=== PATIENT | male | born 1935 | race Caucasian/White ===

== ENCOUNTER 2022-07-05 19:28 | Inpatient (IN) | payer MEDICARE, BC ==
[~2022-07-05] VITALS: Ht 182.9 cm; Wt 75.3 kg
[2022-07-05] MEDS ORDERED: PRAV20TA4 PO (20:37)
[2022-07-05] MEDS ORDERED: MELA5TAB PO (20:37)
[2022-07-05] MEDS ORDERED: SITA100T PO (20:37)
[2022-07-05] MEDS ORDERED: CLON0.5T4 PO (20:37)
[2022-07-05] MEDS ORDERED: DONE5TAB34 PO (20:37)
[2022-07-05] MEDS ORDERED: ESCI-9 PO (20:37)
[2022-07-05] MEDS ORDERED: MEMA10TA PO (20:37)
--- NOTE | 2022-07-05 20:57 | NUR ---
Patient has been admitted to room 139A MHU.
--- NOTE | 2022-07-05 21:51 | NUR ---
Patient is medically clear
--- NOTE | 2022-07-05 21:53 | NUR ---
Report given to September RN
--- NOTE | 2022-07-05 23:17 | NUR ---
Patient taken to MHU room 139A via gurney. Patient in stable condition, no signs of distress. May RN aware of patients arrival.
[2022-07-05 23:32] VITALS: BP 127/70
[2022-07-05] MEDS ORDERED: MAGNESIUM HYDROXIDE 30 ML LIQUID UDC PO PRN (23:45)
[2022-07-05] MEDS ORDERED: MAG HYDROX/AL HYDROX/SIMETH 30 ML LIQUID UDC PO PRN (23:45)
[2022-07-05] MEDS ORDERED: BLOOD SUGAR DIAGNOSTIC 1 EACH STRIP VI ONE (23:45)
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
[2022-07-06 07:30] VITALS: BP 128/75
--- NOTE | 2022-07-06 08:46 | NUR ---
Initial Discharge Plan: Patient currently resides at [facility] in [address] [address] . Patient's son, Storm Munguia states that he would be open to the patient going back to [address] [id number] . SW will continue to work with patient, family, and MD to ensure a safe and proper discharge plan.
[2022-07-06 16:00] VITALS: BP 128/71
[2022-07-06] MEDS: ESCITALOPRAM OXALATE 10 MG TABLET PO SCH (17:08)
[2022-07-06] MEDS: METFORMIN HCL 500 MG TABLET PO SCH (17:09)
--- NOTE | 2022-07-06 17:38 | NUR ---
patient has been asleep most of shift , unable to get up with PT ,compliant with medication ,no s/s of pain or discomfort. incontinent of B and B keep skin dry and clean .will continue close monitoring.
[2022-07-06 20:05] VITALS: BP 126/69
[2022-07-06] MEDS: DONEPEZIL 5 MG TABLET PO SCH (20:38)
[2022-07-06] MEDS: MEMANTINE HCL 5 MG TABLET PO SCH (20:38)
[2022-07-06] MEDS: LORAZEPAM 1 MG TABLET PO PRN (23:55)
--- NOTE | 2022-07-07 03:55 | NUR ---
GPS NOTES: Received patient in bed, A&0x1, arousable to name, patient is bed bound, maximum assistance to ADL's. He is confused and talking to himself. He can't engage in meaningful conversations, he is poor historian. He is suspicious and accusatory to staff when providing care. He is med complaint. Ativan given d/t anxiety. He is sleeping on and off during this shift. Safety precautions implemented.
[2022-07-07 07:38] VITALS: BP 133/73
[2022-07-07 08:23] LABS: HEMATOCRIT 44.3 % (36.7-47.1); MEAN CORPUSCULAR VOLUME 91.7 fL (73.0-96.2); PLATELET COUNT (AUTO) 319 K/uL (152-348)
[2022-07-07] MEDS: METFORMIN HCL 500 MG TABLET PO SCH ×2 (08:34→17:46)
[2022-07-07] MEDS: MEMANTINE HCL 5 MG TABLET PO SCH ×2 (08:36→20:14)
[2022-07-07] MEDS: LINAGLIPTIN 5 MG TABLET PO SCH (08:36)
[2022-07-07 08:39] LABS: BILIRUBIN,DIRECT 0.4 mg/dL (0.0-0.2); BILIRUBIN,TOTAL 1.1 mg/dL (0.2-1.0); CREATININE 0.9 mg/dL (0.6-1.3); MAGNESIUM 2.1 mg/dL (1.8-2.4); PHOSPHOROUS 3.2 mg/dL (2.5-4.9); POTASSIUM 3.4 mmol/L (3.5-5.1); TOTAL PROTEIN, SERUM 8.1 g/dL (6.4-8.2)
[2022-07-07 08:47] LABS: THYROID STIMULATING HORMONE 0.404 mIU/mL (0.358-3.740)
[2022-07-07] MEDS ORDERED: Medication Not On Formulary EA (Sitagliptin Phosphate (Januvia) 100 MG) PO SCH (09:00)
[2022-07-07] MEDS ORDERED: POTASSIUM CHLORIDE 20 MEQ TAB.PRT.SR PO ONE (10:00)
[2022-07-07] MEDS: ESCITALOPRAM OXALATE 10 MG TABLET PO SCH (13:11)
--- NOTE | 2022-07-07 16:08 | NUR ---
Received Pt sitting in chair in hallway, Restless disrobing,confuse talking to self nonsensical. Pt is A/O X1 compliant with medications.Pt is confused and ca not eat by self, pt just plays with his food. Pt Is incontinent total care and needs maximal assistance with ADLs.Pt gets easily Irritated with Nursing care and needs a lot of prompting. Continue to monitor for safety , continue with treatment plan.
[2022-07-07 16:35] VITALS: BP 112/73
[2022-07-07 20:00] VITALS: BP 150/85
[2022-07-07] MEDS: DONEPEZIL 5 MG TABLET PO SCH (20:14)
[2022-07-07 20:15] VITALS: BP 126/71
[2022-07-07] MEDS: TEMAZEPAM 7.5 MG CAPSULE PO PRN (21:15)
--- NOTE | 2022-07-08 04:05 | NUR ---
GPS NOTES: patient resting in bed comfortably, Alert and oriented x1 to his name only. patient need maximum assistance to ADL's. confused and talking to himself. He can't engage in meaningful conversations, he is poor historian. He is suspicious and accusatory to staff when providing care. compliant with meds. slept well after sleeping meds given. Safety precautions implemented.
--- NOTE | 2022-07-08 06:25 | NUR ---
NSG: patient slept 6 hrs through the night.
[2022-07-08 07:54] VITALS: BP 142/46
[2022-07-08] MEDS: MEMANTINE HCL 5 MG TABLET PO SCH ×2 (10:40→21:07)
[2022-07-08] MEDS: METFORMIN HCL 500 MG TABLET PO SCH ×2 (10:40→18:14)
[2022-07-08] MEDS: LINAGLIPTIN 5 MG TABLET PO SCH (10:40)
[2022-07-08 13:27] LABS: *BLOOD, URINE NEGATIVE (NEGATIVE); *CLARITY,URINE CLEAR (CLEAR); *COLOR,URINE YELLOW (YELLOW); *KETONES,URINE 2+ (NEGATIVE); LEUKOCYTE ESTERASE ,URINE NEGATIVE (NEGATIVE); NITRITE, URINE NEGATIVE (NEGATIVE); PH,URINE 5.5 (5.0-8.0); UGLUCOSE NEGATIVE (NEGATIVE)
[2022-07-08] MEDS: ESCITALOPRAM OXALATE 10 MG TABLET PO SCH (13:30)
[2022-07-08 14:56] LABS: *BILIRUBIN,URIN 1+ (NEGATIVE)
[2022-07-08 16:33] LABS: HEMATOCRIT 44.2 % (36.7-47.1); MEAN CORPUSCULAR VOLUME 91.7 fL (73.0-96.2); PLATELET COUNT (AUTO) 349 K/uL (152-348)
[2022-07-08 16:35] VITALS: BP 128/96
[2022-07-08 19:58] VITALS: BP 122/90
[2022-07-08] MEDS: DONEPEZIL 5 MG TABLET PO SCH (21:06)
[2022-07-08] MEDS: LORAZEPAM 1 MG TABLET PO PRN (21:06)
[2022-07-09] MEDS: TEMAZEPAM 7.5 MG CAPSULE PO PRN ×2 (00:53→23:01)
--- NOTE | 2022-07-09 01:24 | NUR ---
Received pt in his room naked. Pt had taken off his clothes during the previous shift. Pt is mainly confused, AOx2, hard to direct/re-direct, yet overall compliant with POC. Pt can be aggressive d/t confusion. Re-education and assurance is needed. Fall precautions r/t unsteady gait and balance. Safety measures taken. Crushing meds is needed since he is confused and disoriented at times. In full tablet, pt tends to play with it in his mouth having a hard time swallowing the pill. Aspiration precautions. Pt favors chocolate pudding and responds well to medications.
[2022-07-09 07:03] LABS: BILIRUBIN,TOTAL 0.6 mg/dL (0.2-1.0); CREATININE 1.1 mg/dL (0.6-1.3); TOTAL PROTEIN, SERUM 7.9 g/dL (6.4-8.2)
[2022-07-09 07:45] VITALS: BP 160/85
[2022-07-09] MEDS: METFORMIN HCL 500 MG TABLET PO SCH ×2 (08:36→17:26)
[2022-07-09] MEDS: LINAGLIPTIN 5 MG TABLET PO SCH (08:36)
[2022-07-09] MEDS: MEMANTINE HCL 5 MG TABLET PO SCH ×2 (08:36→20:37)
[2022-07-09] MEDS: LORAZEPAM 1 MG TABLET PO PRN ×3 (08:36→20:36)
[2022-07-09] MEDS: ESCITALOPRAM OXALATE 10 MG TABLET PO SCH (13:02)
--- NOTE | 2022-07-09 15:31 | NUR ---
received patient is awake, oriented to self only. patient up to mine-chair with labile mood pt is disoriented, redirections are not effective prn Ativan give ,keep skin dry and clean at all time.
--- NOTE | 2022-07-09 15:37 | NUR ---
Firearms Report: Lap Polisher completed and submitted a DOJ firearms report for 5150 a danger to others and grave disability certifications. A copy of report has been placed in patient chart.
[2022-07-09 16:25] VITALS: BP 161/93
[2022-07-09 20:07] VITALS: BP 112/51
[2022-07-09] MEDS: DONEPEZIL 5 MG TABLET PO SCH (20:37)
[2022-07-09] MEDS: ACETAMINOPHEN 325 MG TABLET PO PRN (20:37)
--- NOTE | 2022-07-10 04:46 | NUR ---
Pt continued to have episodes of AH and VH this shift. AOx1. Confused and disoriented. x1 assist with ADL's. Unsteady gait and balance. Pt was placed onto mine-chair for a few hours for safety and closer observation. Responds well to anxiety and insomnia medications taken. During times of confusion, pt can be resistant to care. x2 assist during times of resistance for staff and pt safety when proving care. Reassurance and re-education is required to bring calm and compliance from pt. Safety measures carried out.
[2022-07-10 07:30] VITALS: BP 156/87
[2022-07-10] MEDS: LORAZEPAM 1 MG TABLET PO PRN ×3 (07:57→20:12)
[2022-07-10] MEDS: MEMANTINE HCL 5 MG TABLET PO SCH ×2 (10:01→20:12)
[2022-07-10] MEDS: LINAGLIPTIN 5 MG TABLET PO SCH (10:01)
[2022-07-10] MEDS: METFORMIN HCL 500 MG TABLET PO SCH ×2 (10:01→17:24)
--- NOTE | 2022-07-10 11:28 | NUR ---
BHAVIN Family Contact: BHAVIN contacted pt's sonStorm ([phone]) and left a voicemail for a call back. per report, pt's son, Storm would like pt to return to [facility] upon discharge. BHAVIN will continue to contact.
[2022-07-10] MEDS ORDERED: MIRALAX 17 GM POWD.PACK PO ONE (11:30)
--- NOTE | 2022-07-10 11:53 | NUR ---
Patient 14 DAY hold request was sent to court, Zulma received and confirmed it.
[2022-07-10] MEDS: ESCITALOPRAM OXALATE 10 MG TABLET PO SCH (12:12)
[2022-07-10] MEDS: DIVALPROEX SPRINKLE 125 MG CAP.SPRINK PO SCH ×2 (12:13→16:17)
[2022-07-10] MEDS: NUTRISOURCE FIBER 4 GM PACKET PO SCH ×2 (12:43→16:21)
--- NOTE | 2022-07-10 15:19 | NUR ---
Received patient in the hallway sitting in Adele Chair, A/O x1, agitated, bagging with both hand on the his table chair, does not follow directions, "Just let me out of here", Ativan 1mg given @ 7:57Am and it was effective. Patient took morning medications as orders, provided daily care, family visit, and daughter. Patient continue to be restless, angry, when awake, starts [facility] table, "1, 2, 3, get out let me out ". screams, Ativan given at 14:38 pm, at this time monitor patient closely. CT scan w/o contrast ordered stat by Maria L TASSEL SNIPPER , Stat. But patient is irritable, no following direction at time will continue to monitor. TASSEL SNIPPER and neurologist aware of patient behavior.
--- NOTE | 2022-07-10 15:51 | NUR ---
Patient was taken to CT at this time with assist, but with no success, patient was not cooperative with CT Scan.
[2022-07-10 16:00] VITALS: BP 153/81
[2022-07-10] MEDS: ACETAMINOPHEN 325 MG TABLET PO PRN (16:17)
[2022-07-10] MEDS ORDERED: DOCUSATE SODIUM 100 MG CAPSULE PO SCH (17:00)
[2022-07-10] MEDS: DOCUSATE SODIUM 100 MG/10 ML LIQUID UDC PO SCH (17:24)
[2022-07-10] MEDS: DONEPEZIL 5 MG TABLET PO SCH (20:12)
--- NOTE | 2022-07-11 04:31 | NUR ---
GPS NOTES: Received patient in the gerichair, A&0x1. He is confused, banging on the table, and increased agitation noted. Patient is somewhat re-directable, he is talking nonsensical and doesn't engage in meaningful conversations. Klonopin given. Med compliant. Snacks and fluids provided. Slept 7.45h during shift. No distress noted. All safety measures in placed.
[2022-07-11 07:30] VITALS: BP 163/86
--- NOTE | 2022-07-11 08:00 | NUR ---
Pt had high BP of 165/86 . Rechecked and it was 142/75. Informed MD and received an order for Norvasc 5mg Po daily.Medication was given. Will continue to monitor. No distress noted.
[2022-07-11] MEDS: LINAGLIPTIN 5 MG TABLET PO SCH (08:08)
[2022-07-11] MEDS: METFORMIN HCL 500 MG TABLET PO SCH ×2 (08:08→17:10)
[2022-07-11] MEDS: DOCUSATE SODIUM 100 MG/10 ML LIQUID UDC PO SCH ×2 (08:08→17:10)
[2022-07-11] MEDS: MEMANTINE HCL 5 MG TABLET PO SCH ×2 (08:08→20:27)
[2022-07-11] MEDS: NUTRISOURCE FIBER 4 GM PACKET PO SCH ×2 (08:33→17:19)
[2022-07-11 10:16] VITALS: BP 142/75
[2022-07-11] MEDS: DIVALPROEX SPRINKLE 125 MG CAP.SPRINK PO SCH ×2 (12:01→17:10)
[2022-07-11] MEDS: ESCITALOPRAM OXALATE 10 MG TABLET PO SCH (12:02)
[2022-07-11] MEDS: AMLODIPINE 5 MG TABLET PO SCH (12:02)
[2022-07-11] MEDS: LORAZEPAM 1 MG TABLET PO PRN ×2 (14:41→20:27)
--- NOTE | 2022-07-11 15:33 | NUR ---
Received Pt in room sleeping. Pt is A/O x1 and needs maximal assistance with ADLs.Pt is confuse,guarded,labile and can be combative at times with care.Pt is medication compliant.Pt was arguing with other patients not making sense banging on the table yelling. Gave an Ativan at 1440 for agitation. Continue to monitor for safety, continue with treatment plan.
[2022-07-11 16:00] VITALS: BP 147/78
[2022-07-11] MEDS: ACETAMINOPHEN 325 MG TABLET PO PRN (17:11)
[2022-07-11 20:00] VITALS: BP 164/88
[2022-07-11] MEDS: DONEPEZIL 5 MG TABLET PO SCH (20:27)
[2022-07-11] MEDS: TEMAZEPAM 7.5 MG CAPSULE PO PRN (21:21)
--- NOTE | 2022-07-12 05:11 | NUR ---
GPS NOTES: Agitated, restless and anxious. Banging on the mine table, need re-directions and presenting reality. Patient is confused, forgetful A&Ox1. Ativan given. Effective. Temazepam given. Effective. Nursing care provided, no issues noted. Slept well during shift. Safety strategies left in placed.
[2022-07-12 07:46] VITALS: BP 112/54
[2022-07-12] MEDS: AMLODIPINE 5 MG TABLET PO SCH (08:48)
[2022-07-12] MEDS: METFORMIN HCL 500 MG TABLET PO SCH ×2 (08:48→17:41)
[2022-07-12] MEDS: LINAGLIPTIN 5 MG TABLET PO SCH (08:48)
[2022-07-12] MEDS: MEMANTINE HCL 5 MG TABLET PO SCH ×2 (08:48→20:25)
[2022-07-12] MEDS: NUTRISOURCE FIBER 4 GM PACKET PO SCH ×2 (08:49→17:39)
[2022-07-12] MEDS: DOCUSATE SODIUM 100 MG/10 ML LIQUID UDC PO SCH ×2 (08:52→17:38)
[2022-07-12] MEDS: LORAZEPAM 1 MG TABLET PO PRN ×3 (11:14→20:25)
--- NOTE | 2022-07-12 11:31 | NUR ---
Nursing- Remains up in his mine-chair by the group activity, fidgety, banging his table , confused, incoherent speech, ativan 1 mg po. given, fluids offered , encouraged. safety emphasized.
--- NOTE | 2022-07-12 11:57 | NUR ---
Nursing- Patient kept trying to slide out of his mine-chair, Patient repositioned couple of times, came in to visit, informed of patient's behavior and progress.Remains confused, , gets agitated .Constantly needing reorientation, , monitored safety.
[2022-07-12] MEDS: DIVALPROEX SPRINKLE 125 MG CAP.SPRINK PO SCH ×2 (12:33→16:24)
[2022-07-12] MEDS: ESCITALOPRAM OXALATE 10 MG TABLET PO SCH (12:33)
--- NOTE | 2022-07-12 13:48 | NUR ---
BHAVIN Family Contact: SW contacted pt's son, Storm ([phone]) and discussed pt's discharge plan. Storm stated he spoke with Dr. Ying who recommended [facility] for the pt upon discharge. Storm provided [facility] as an option for continuation of care and [facility] as a backup option. Storm is aware that this SW will update Storm on discharge updates and work day to day on the discharge plan. Storm stated he is the main point of contact for the pt. However, Storm stated there is no DPOA.
[2022-07-12] MEDS ORDERED: BISACODYL 5 MG TABLET.DR PO PRN (15:00)
[2022-07-12 15:08] VITALS: BP 136/72
--- NOTE | 2022-07-12 16:07 | NUR ---
Patient had court hearing today, manager of operations gave 14 Day probable cause for DTO and GD.
[2022-07-12 20:00] VITALS: BP 121/83
[2022-07-12] MEDS: DONEPEZIL 5 MG TABLET PO SCH (20:24)
[2022-07-12] MEDS: TEMAZEPAM 7.5 MG CAPSULE PO PRN (22:42)
[2022-07-13 07:30] VITALS: BP_SYST 99; BP_DIAS 7; BP_DIAS 72
[2022-07-13] MEDS: DOCUSATE SODIUM 100 MG/10 ML LIQUID UDC PO SCH ×2 (08:47→16:48)
[2022-07-13] MEDS: DIVALPROEX SPRINKLE 125 MG CAP.SPRINK PO SCH ×3 (08:48→16:49)
[2022-07-13] MEDS: METFORMIN HCL 500 MG TABLET PO SCH ×2 (08:48→17:13)
[2022-07-13] MEDS: AMLODIPINE 5 MG TABLET PO SCH (08:48)
[2022-07-13] MEDS: MEMANTINE HCL 5 MG TABLET PO SCH ×2 (08:48→20:20)
[2022-07-13] MEDS: LINAGLIPTIN 5 MG TABLET PO SCH (08:49)
[2022-07-13] MEDS: NUTRISOURCE FIBER 4 GM PACKET PO SCH ×2 (08:49→16:49)
[2022-07-13] MEDS: LORAZEPAM 1 MG TABLET PO PRN ×3 (08:52→20:20)
[2022-07-13] MEDS ORDERED: LORAZEPAM 1 MG TABLET PO PRN (10:00)
--- NOTE | 2022-07-13 10:00 | NUR ---
Nursing- Patient scheduled for CT head , orders received from Dr Ying to medicate patient additional dose of ativan 1 mg po, po prior CT .
--- NOTE | 2022-07-13 10:00 | NUR ---
Nursing - Patient was showered needing 2 staff to assist patient ,difficulty following directions, gets aggressive during shower, trying to hit staff, and grabbing staff hard .
--- NOTE | 2022-07-13 11:45 | NUR ---
Nursing- Had CT scan of head , per enamel finisher. patient was cooperative during the test
[2022-07-13] MEDS: ESCITALOPRAM OXALATE 10 MG TABLET PO SCH (12:24)
[2022-07-13 16:00] VITALS: BP 106/66
[2022-07-13 19:45] VITALS: BP 126/77
[2022-07-13] MEDS: DONEPEZIL 5 MG TABLET PO SCH (20:20)
[2022-07-13] MEDS: TEMAZEPAM 7.5 MG CAPSULE PO PRN (21:32)
--- NOTE | 2022-07-14 06:38 | NUR ---
Received patient banging on the table and attention seeking. Distraction and reorientation attempted multiple times. This patient is unable to engage in conversation, has visual hallucinations and labile. The patient is in a angry mood and hostile to the staff when trying to assist him with ADLs. Sleep hours were 6.45. This am ,the patient yelled at the staff and again was resisting care. Safety Stratiges are in place. The patient is however , medication compliant. Continuing to monitor for further combative behaviors.
[2022-07-14 07:49] VITALS: BP 158/89
[2022-07-14 08:32] LABS: HEMATOCRIT 43.6 % (36.7-47.1); MEAN CORPUSCULAR HEMOGLOBIN 30.9 uug (23.8-33.4); MEAN CORPUSCULAR VOLUME 90.6 fL (73.0-96.2); PLATELET COUNT (AUTO) 318 K/uL (152-348)
[2022-07-14] MEDS: DIVALPROEX SPRINKLE 125 MG CAP.SPRINK PO SCH ×3 (08:57→16:47)
[2022-07-14] MEDS: LINAGLIPTIN 5 MG TABLET PO SCH (08:57)
[2022-07-14] MEDS: MEMANTINE HCL 5 MG TABLET PO SCH ×2 (08:58→20:16)
[2022-07-14] MEDS: METFORMIN HCL 500 MG TABLET PO SCH ×2 (08:58→17:28)
[2022-07-14] MEDS: AMLODIPINE 5 MG TABLET PO SCH (08:58)
[2022-07-14] MEDS: DOCUSATE SODIUM 100 MG/10 ML LIQUID UDC PO SCH ×2 (09:03→16:52)
[2022-07-14] MEDS: NUTRISOURCE FIBER 4 GM PACKET PO SCH ×2 (09:04→16:49)
[2022-07-14 09:15] LABS: BILIRUBIN,TOTAL 0.4 mg/dL (0.2-1.0); CREATININE 0.9 mg/dL (0.6-1.3); POTASSIUM 3.5 mmol/L (3.5-5.1); TOTAL PROTEIN, SERUM 7.3 g/dL (6.4-8.2)
[2022-07-14] MEDS ORDERED: SENNOSIDES 1 TABLET PO PRN (11:30)
[2022-07-14] MEDS: ESCITALOPRAM OXALATE 10 MG TABLET PO SCH (12:17)
[2022-07-14] MEDS: LORAZEPAM 1 MG TABLET PO PRN ×2 (15:28→20:15)
--- NOTE | 2022-07-14 15:55 | NUR ---
Nursing - Stayed in his mine-chair most of the time, toileted as needed. Attended part of his group activity. Speech incoherent , confused, able follow simple command. Remanis to need supervision during meals r/t patient mixes all foods together and ends up not eating , fluids offered
[2022-07-14 16:09] VITALS: BP 120/66
[2022-07-14 20:00] VITALS: BP 133/70
[2022-07-14] MEDS: DONEPEZIL 5 MG TABLET PO SCH (20:15)
[2022-07-14] MEDS: TEMAZEPAM 7.5 MG CAPSULE PO PRN (23:53)
--- NOTE | 2022-07-15 04:14 | NUR ---
Received pt in hallway restless, disrobing and banging on the table. Took pt to dinning room to watch TV.Pt started yelling in dinning room. Pt needs a lot of prompting.Pt is unable to engage in any conversation and has visual hallucinations. Pt is resistive with care and gets combative at times.PRN given .Pt is in room sleeping.Continue to monitor for safety, behavioral disturbances, Continue with treatment plan.
[2022-07-15 08:14] VITALS: BP 145/75
[2022-07-15] MEDS: LINAGLIPTIN 5 MG TABLET PO SCH (09:11)
[2022-07-15] MEDS: MEMANTINE HCL 5 MG TABLET PO SCH ×2 (09:11→20:54)
[2022-07-15] MEDS: DIVALPROEX SPRINKLE 125 MG CAP.SPRINK PO SCH ×3 (09:11→17:43)
[2022-07-15] MEDS: DOCUSATE SODIUM 100 MG/10 ML LIQUID UDC PO SCH ×2 (09:12→17:00)
[2022-07-15] MEDS: NUTRISOURCE FIBER 4 GM PACKET PO SCH ×2 (09:12→17:42)
[2022-07-15] MEDS: AMLODIPINE 5 MG TABLET PO SCH (09:12)
[2022-07-15] MEDS: METFORMIN HCL 500 MG TABLET PO SCH ×2 (09:13→18:06)
[2022-07-15] MEDS ORDERED: ESCITALOPRAM OXALATE 10 MG TABLET PO SCH (13:00)
--- NOTE | 2022-07-15 14:15 | NUR ---
Nursing- Bed alarm went off, noted patient was getting oob, incontienent of urine, good skin care provided. assisted to his mine-chair, difficulty following directions.Safety emphasized, moniored closely for needs. Adequate fluids
[2022-07-15] MEDS: LORAZEPAM 1 MG TABLET PO PRN ×2 (15:06→19:14)
[2022-07-15 16:01] VITALS: BP 111/78
[2022-07-15 19:44] VITALS: BP 108/72
[2022-07-15] MEDS: DONEPEZIL 5 MG TABLET PO SCH (20:54)
[2022-07-15] MEDS: TEMAZEPAM 7.5 MG CAPSULE PO PRN (22:55)
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
[2022-07-16 08:44] VITALS: BP 148/59
[2022-07-16] MEDS: LORAZEPAM 1 MG TABLET PO PRN ×3 (08:45→20:46)
[2022-07-16] MEDS: DIVALPROEX SPRINKLE 125 MG CAP.SPRINK PO SCH ×3 (09:20→16:21)
[2022-07-16] MEDS: LINAGLIPTIN 5 MG TABLET PO SCH (09:20)
[2022-07-16] MEDS: AMLODIPINE 5 MG TABLET PO SCH (09:20)
[2022-07-16] MEDS: METFORMIN HCL 500 MG TABLET PO SCH ×2 (09:20→17:32)
[2022-07-16] MEDS: MEMANTINE HCL 5 MG TABLET PO SCH ×2 (09:20→20:46)
[2022-07-16] MEDS: NUTRISOURCE FIBER 4 GM PACKET PO SCH ×2 (09:21→16:22)
[2022-07-16] MEDS: DOCUSATE SODIUM 100 MG/10 ML LIQUID UDC PO SCH ×2 (09:21→16:21)
--- NOTE | 2022-07-16 11:09 | NUR ---
BHAVIN SNF Referral: SW faxed patient's referral packet including: History and Physical, Consultation, Progress Notes, Medication List and Labs to the following facilities for review and possible custodial placement: [facility] [address] [facility] [address] ([phone]) and BHAVIN spoke with Berenice in admissions. BHAVIN is awaiting a response from [facility] [phone] [place] [address] [facility] [address] as well regarding pt's referral per families request.
[2022-07-16] MEDS: ACETAMINOPHEN 325 MG TABLET PO PRN (12:33)
--- NOTE | 2022-07-16 13:29 | NUR ---
GPS: Nursing Notes: Destructive Behavior To Others: Patient is awake and responding to his name, A/Ox1, poor anger management, resistant with nursing care, laughing inappropriate when questioned by psychiatrist, belligerent behavior toward staff when assisting him with his ADL's, redirected and reoriented during shift, unable to formulate a viable plan for self care, disorganized, confused, impaired judgment, poor insight, continue to monitor for safety, continue with treatment plan.
--- NOTE | 2022-07-16 14:42 | NUR ---
BHAVIN Discharge Update: BHAVIN spoke with Berenice in admissions at [facility] [address] [facility] [address] ([phone]) who stated that they are unable to accept the pt at this time due to pt not being appropriate for their facility due to behavioral issues. Charmaine from [facility] [phone] [place] [address] [facility] [address] stated they do not have bed availability at this time and cannot accept the pt.
--- NOTE | 2022-07-16 15:53 | NUR ---
BHAVIN Family Contact: BHAVIN contacted pt's son, Storm ([phone]) and informed Storm that per Charmaine from [facility], the facility does not have bed availability at this time. BHAVIN stated that Berenice and Yosi from [facility] and informed this chief underwriter that pt is not accepted at this time due to behavioral issues. BHAVIN also informed Storm that this chief underwriter is awaiting a response from [facility] and the admissions team stated they can only approve same day of discharge. Storm is aware and grateful for this chief underwriter updating. Storm stated he is agreeable to recommendations from Dr. Ying that are close to the above facilities upon discharge. BHAVIN will continue to follow-up.
[2022-07-16 16:37] VITALS: BP 119/72
[2022-07-16 19:59] VITALS: BP 127/70
[2022-07-16] MEDS: DONEPEZIL 5 MG TABLET PO SCH (20:46)
[2022-07-16] MEDS: QUETIAPINE FUMARATE 25 MG TABLET PO SCH (20:47)
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
[2022-07-17 08:09] VITALS: BP 153/81
[2022-07-17] MEDS: MEMANTINE HCL 5 MG TABLET PO SCH ×2 (08:52→20:49)
[2022-07-17] MEDS: METFORMIN HCL 500 MG TABLET PO SCH ×2 (08:52→17:36)
[2022-07-17] MEDS: QUETIAPINE FUMARATE 25 MG TABLET PO SCH ×2 (08:52→20:48)
[2022-07-17] MEDS: BENZTROPINE MESYLATE 0.5 MG TABLET PO SCH ×2 (08:52→16:26)
[2022-07-17] MEDS: DIVALPROEX SPRINKLE 125 MG CAP.SPRINK PO SCH ×3 (08:53→16:26)
[2022-07-17] MEDS: NUTRISOURCE FIBER 4 GM PACKET PO SCH ×2 (08:53→16:33)
[2022-07-17] MEDS: ACETAMINOPHEN 325 MG TABLET PO PRN ×2 (08:53→16:26)
[2022-07-17] MEDS: LINAGLIPTIN 5 MG TABLET PO SCH (08:53)
[2022-07-17] MEDS: AMLODIPINE 5 MG TABLET PO SCH (08:53)
[2022-07-17] MEDS: DOCUSATE SODIUM 100 MG/10 ML LIQUID UDC PO SCH ×2 (08:54→16:32)
--- NOTE | 2022-07-17 13:25 | NUR ---
BHAVIN SNF Referral: SW faxed patient's referral packet including: History and Physical, Consultation, Progress Notes, Medication List and Labs to the following facilities for review and possible alf placement: [facility] [address] [place] [address] and this typewriter operator automatic spoke with Zara in admissions.
--- NOTE | 2022-07-17 13:26 | NUR ---
GPS: Nursing Notes: Destructive Behavior To Others: Patient is awake and responding to his name, confused, impaired judgment, poor insight, gets easily irritable when questioned by staff, poor anger management, resistant with nursing care, disorganized, belligerent behavior when assisting him to change his diaper, compliant with his medications, unable to formulate a viable plan for self care, continue to monitor for safety, continue with treatment plan.
--- NOTE | 2022-07-17 15:33 | NUR ---
BHAVIN Family Contact: BHAVIN contacted pt's son, Storm ([phone]) and discussed pt's treatment plan. BHAVIN confirmed pt's neurology paperwork by Dr. Rick is in the chart. BHAVIN discussed Dr. Ying's snf recommendation for the pt to continue care at [facility] upon discharge. Storm is agreeable with the discharge plan. BHAVIN will continue to update Storm.
[2022-07-17 15:54] VITALS: BP 140/81
[2022-07-17 19:43] VITALS: BP 115/74
[2022-07-17] MEDS: DONEPEZIL 5 MG TABLET PO SCH (20:47)
[2022-07-17] MEDS: LORAZEPAM 1 MG TABLET PO PRN (20:48)
[2022-07-17] MEDS: TEMAZEPAM 7.5 MG CAPSULE PO PRN (21:11)
[2022-07-18 07:30] VITALS: BP 121/20
[2022-07-18] MEDS: BENZTROPINE MESYLATE 0.5 MG TABLET PO SCH ×2 (08:04→17:25)
[2022-07-18] MEDS: METFORMIN HCL 500 MG TABLET PO SCH ×2 (08:04→17:25)
[2022-07-18] MEDS: MEMANTINE HCL 5 MG TABLET PO SCH ×2 (08:05→20:15)
[2022-07-18] MEDS: QUETIAPINE FUMARATE 25 MG TABLET PO SCH ×2 (08:05→20:15)
[2022-07-18] MEDS: ACETAMINOPHEN 325 MG TABLET PO PRN (08:05)
[2022-07-18] MEDS: LINAGLIPTIN 5 MG TABLET PO SCH (08:05)
[2022-07-18] MEDS: AMLODIPINE 5 MG TABLET PO SCH (08:06)
[2022-07-18] MEDS: DIVALPROEX SPRINKLE 125 MG CAP.SPRINK PO SCH ×3 (08:07→17:25)
[2022-07-18] MEDS: DOCUSATE SODIUM 100 MG/10 ML LIQUID UDC PO SCH ×2 (09:24→17:26)
[2022-07-18] MEDS: NUTRISOURCE FIBER 4 GM PACKET PO SCH ×2 (09:24→17:31)
[2022-07-18] MEDS: LORAZEPAM 1 MG TABLET PO PRN ×2 (15:06→20:18)
--- NOTE | 2022-07-18 15:08 | NUR ---
Patient anxious, screaming, banging on mine-chair table, prn po given for anxiety at this time.
--- NOTE | 2022-07-18 15:59 | NUR ---
Receive Pt in hallway confused, talking to self not able to have a meaningful conversation,banging on the table and sliding down from chair Pt is nonsensical, rambling and easily irritable but redirectable.Pt is compliant with medication and nursing care. Reassurance provided. Continue to monitor for safety ,continue with treatment plan
[2022-07-18 16:00] VITALS: BP 123/79
[2022-07-18] MEDS: DONEPEZIL 5 MG TABLET PO SCH (20:15)
[2022-07-19 07:42] LABS: HEMATOCRIT 42.6 % (36.7-47.1); MEAN CORPUSCULAR HEMOGLOBIN 30.6 uug (23.8-33.4); MEAN CORPUSCULAR VOLUME 91.7 fL (73.0-96.2); PLATELET COUNT (AUTO) 294 K/uL (152-348)
[2022-07-19 08:00] VITALS: BP 129/73
[2022-07-19] MEDS: METFORMIN HCL 500 MG TABLET PO SCH ×2 (08:09→17:46)
[2022-07-19] MEDS: LINAGLIPTIN 5 MG TABLET PO SCH (08:10)
[2022-07-19] MEDS: DIVALPROEX SPRINKLE 125 MG CAP.SPRINK PO SCH ×3 (08:10→17:45)
[2022-07-19] MEDS: BENZTROPINE MESYLATE 0.5 MG TABLET PO SCH ×2 (08:10→17:47)
[2022-07-19] MEDS: MEMANTINE HCL 5 MG TABLET PO SCH ×2 (08:10→21:11)
[2022-07-19] MEDS: QUETIAPINE FUMARATE 25 MG TABLET PO SCH ×3 (08:10→17:46)
[2022-07-19] MEDS: AMLODIPINE 5 MG TABLET PO SCH (08:12)
[2022-07-19] MEDS: ACETAMINOPHEN 325 MG TABLET PO PRN ×2 (08:17→17:46)
[2022-07-19 08:41] LABS: ALANINE AMINOTRANSFERASE 35 U/L (16-63); ALKALINE PHOSPHATASE 65 U/L (50-136); ASPARTATE AMINOTRANSFERASE 18 U/L (15-37); BILIRUBIN,TOTAL 0.4 mg/dL (0.2-1.0); CARBON DIOXIDE 32 mmol/L (21-32); CHLORIDE 105 mmol/L (98-107); CREATININE 0.8 mg/dL (0.6-1.3); GLUCOSE 114 mg/dL (74-106); POTASSIUM 3.4 mmol/L (3.5-5.1); TOTAL PROTEIN, SERUM 6.7 g/dL (6.4-8.2); UREA NITROGEN, BLOOD 17 mg/dL (7-18)
[2022-07-19] MEDS: DOCUSATE SODIUM 100 MG/10 ML LIQUID UDC PO SCH ×2 (09:24→17:45)
[2022-07-19] MEDS: NUTRISOURCE FIBER 4 GM PACKET PO SCH ×2 (09:24→18:39)
[2022-07-19] MEDS ORDERED: POTASSIUM CHLORIDE 20 MEQ TAB.PRT.SR PO ONE (09:45)
[2022-07-19] MEDS ORDERED: POTASSIUM CHLORIDE 20 MEQ POWDER PACKET PO ONE (11:00)
[2022-07-19 16:00] VITALS: BP 121/70
--- NOTE | 2022-07-19 16:26 | NUR ---
Receive Pt in room confused, talking to self not able to have a meaningful conversation,transfer pt to the chair , pt was anxious, restless and started banging on the table, rambling and easily irritable but redirectable.Pt is compliant with medication and nursing care.Pt seemed more calm after his morning medications. Reassurance provided. Continue to monitor for safety ,continue with treatment plan.
[2022-07-19 20:00] VITALS: BP 128/74
[2022-07-19] MEDS ORDERED: QUETIAPINE FUMARATE 25 MG TABLET PO SCH (21:00)
[2022-07-19] MEDS: DONEPEZIL 5 MG TABLET PO SCH (21:11)
[2022-07-20 08:23] VITALS: BP 105/59
[2022-07-20] MEDS: AMLODIPINE 5 MG TABLET PO SCH (09:00)
--- NOTE | 2022-07-20 09:56 | NUR ---
BHAVIN Family Contact: BHAVIN contacted pt's son, Storm ([phone]) and discussed pt's discharge and treatment plan. Pt was not accepted to the three facilities Storm previously requested such as, [facility] [address] [facility] [address] ([phone]); [facility] [phone] [place] [address] [facility] [address], and [facility]. BHAVIN had discussed with Storm that there was no bed availability at [facility] confirmed by Charmaine in the business office. Per Nazia in admissions at [facility], they cannot accept the pt at this time due to his behavioral issues. Pt only has one accepting facility at this time such as, [facility] [address] [facility] [place] [address] confirmed by Zara in admissions. Storm is aware of the above information and understanding. Storm expressed his concerns with [facility] and would like to further research. However, Storm is not refusing [facility]. This SW will continue to assist Storm with pts continuation of care location. In addition, BHAVIN informed Storm that upon discharge, if the pt does not have an accepting facility of [facility], the pt will need to safely discharge via ambulance to [facility]. BHAVIN also informed Storm that it is not a permanent placement and the pt may later transfer to a facility of Storm's choice. Storm is aware and agreeable of this plan. Pt does not have a DPOA or conservator.
[2022-07-20] MEDS: QUETIAPINE FUMARATE 25 MG TABLET PO SCH ×3 (11:27→20:53)
[2022-07-20] MEDS: DIVALPROEX SPRINKLE 125 MG CAP.SPRINK PO SCH ×3 (11:29→18:39)
[2022-07-20] MEDS: DOCUSATE SODIUM 100 MG/10 ML LIQUID UDC PO SCH ×2 (11:29→18:38)
[2022-07-20] MEDS: BENZTROPINE MESYLATE 0.5 MG TABLET PO SCH ×2 (11:29→18:38)
[2022-07-20] MEDS: METFORMIN HCL 500 MG TABLET PO SCH ×2 (11:32→18:38)
[2022-07-20] MEDS: MEMANTINE HCL 5 MG TABLET PO SCH ×2 (11:32→20:53)
[2022-07-20] MEDS: LINAGLIPTIN 5 MG TABLET PO SCH (11:33)
[2022-07-20] MEDS: NUTRISOURCE FIBER 4 GM PACKET PO SCH ×2 (11:34→18:39)
[2022-07-20 16:11] VITALS: BP 133/94
[2022-07-20 20:07] VITALS: BP 125/72
[2022-07-20] MEDS: LORAZEPAM 1 MG TABLET PO PRN (20:13)
--- NOTE | 2022-07-20 20:14 | NUR ---
patient is very agitated banging on the table, and screaming. ativan 1 mg po prn given.
[2022-07-20] MEDS: DONEPEZIL 5 MG TABLET PO SCH (20:54)
[2022-07-20] MEDS: TEMAZEPAM 7.5 MG CAPSULE PO PRN (22:39)
--- NOTE | 2022-07-21 06:34 | NUR ---
GPS: Remain uncooperative with care. gets easily irritable while proving adl's. slept 7.15 hrs after sleeping meds given.
[2022-07-21 07:51] VITALS: BP 126/69
[2022-07-21] MEDS: MEMANTINE HCL 5 MG TABLET PO SCH ×2 (09:09→21:00)
[2022-07-21] MEDS: DIVALPROEX SPRINKLE 125 MG CAP.SPRINK PO SCH ×3 (09:09→18:22)
[2022-07-21] MEDS: LINAGLIPTIN 5 MG TABLET PO SCH (09:10)
[2022-07-21] MEDS: AMLODIPINE 5 MG TABLET PO SCH (09:11)
[2022-07-21] MEDS: METFORMIN HCL 500 MG TABLET PO SCH ×2 (09:11→18:22)
[2022-07-21] MEDS: QUETIAPINE FUMARATE 25 MG TABLET PO SCH ×4 (09:11→21:00)
[2022-07-21] MEDS: NUTRISOURCE FIBER 4 GM PACKET PO SCH ×2 (09:12→17:00)
[2022-07-21] MEDS: DOCUSATE SODIUM 100 MG/10 ML LIQUID UDC PO SCH ×2 (09:15→18:22)
[2022-07-21] MEDS: BENZTROPINE MESYLATE 0.5 MG TABLET PO SCH ×2 (09:15→18:22)
[2022-07-21] MEDS: LORAZEPAM 1 MG TABLET PO PRN ×3 (11:55→20:14)
[2022-07-21 16:05] VITALS: BP 127/72
[2022-07-21 20:00] VITALS: BP 125/70
--- NOTE | 2022-07-21 20:16 | NUR ---
nsg: patient is very agitated banging on the table, and try to grab refrigeration plant operator's hand, ativan 1 mg po prn given for out of control behavior.
[2022-07-21] MEDS: DONEPEZIL 5 MG TABLET PO SCH (21:01)
--- NOTE | 2022-07-22 04:40 | NUR ---
NSG: Received patient sitting in mine chair. confused and disoriented. compliant with meds. patient is incontinent of b+b. assisted with adl's. good harmeet care provided. compliant with meds. assisted in bed. patient was cooperative with adl's, no agitation noted so val. continue monitoring for safety.
--- NOTE | 2022-07-22 06:32 | NUR ---
GPS: SLEPT 5.45 HRS THROUGH THE NIGHT.
[2022-07-22] MEDS: LINAGLIPTIN 5 MG TABLET PO SCH (08:27)
[2022-07-22] MEDS: BENZTROPINE MESYLATE 0.5 MG TABLET PO SCH ×2 (08:27→16:45)
[2022-07-22] MEDS: LORAZEPAM 1 MG TABLET PO PRN ×2 (08:27→20:22)
[2022-07-22] MEDS: MEMANTINE HCL 5 MG TABLET PO SCH ×2 (08:27→20:22)
[2022-07-22] MEDS: METFORMIN HCL 500 MG TABLET PO SCH ×2 (08:27→16:44)
[2022-07-22] MEDS: QUETIAPINE FUMARATE 25 MG TABLET PO SCH ×4 (08:27→20:22)
[2022-07-22] MEDS: DIVALPROEX SPRINKLE 125 MG CAP.SPRINK PO SCH ×3 (08:27→16:44)
[2022-07-22] MEDS: NUTRISOURCE FIBER 4 GM PACKET PO SCH ×2 (08:29→16:45)
[2022-07-22] MEDS: AMLODIPINE 5 MG TABLET PO SCH (08:29)
[2022-07-22] MEDS: DOCUSATE SODIUM 100 MG/10 ML LIQUID UDC PO SCH ×2 (08:30→16:46)
[2022-07-22 08:36] VITALS: BP 154/76
--- NOTE | 2022-07-22 15:01 | NUR ---
Receive Patient is awake and responding to his name, confused, impaired judgment, poor insight, gets easily irritable when redirection by staff, poor anger management, resistant with nursing care, disorganized, belligerent behavior when assisting him to change his diaper, compliant with his medications, unable to formulate a viable plan for self care, continue to monitor for safety, continue with treatment plan.
[2022-07-22 16:03] VITALS: BP 127/74
[2022-07-22 19:58] VITALS: BP 126/61
[2022-07-22] MEDS: DONEPEZIL 5 MG TABLET PO SCH (20:22)
[2022-07-22] MEDS: TEMAZEPAM 7.5 MG CAPSULE PO PRN (23:46)
[2022-07-22] MEDS: ACETAMINOPHEN 325 MG TABLET PO PRN (23:46)
--- NOTE | 2022-07-23 04:59 | NUR ---
AOx1, pt is still experiencing AH and VH. Pt can become aggressive and combative toward staff providing care d/t confusion. Reassurance and re-education needed in order for pt compliance. Safety measures carried out.
[2022-07-23 08:08] VITALS: BP 141/76
[2022-07-23] MEDS: DOCUSATE SODIUM 100 MG/10 ML LIQUID UDC PO SCH ×2 (08:54→18:04)
[2022-07-23] MEDS: LINAGLIPTIN 5 MG TABLET PO SCH (08:55)
[2022-07-23] MEDS: BENZTROPINE MESYLATE 0.5 MG TABLET PO SCH ×2 (08:55→18:07)
[2022-07-23] MEDS: AMLODIPINE 5 MG TABLET PO SCH (08:55)
[2022-07-23] MEDS: METFORMIN HCL 500 MG TABLET PO SCH ×2 (08:55→18:03)
[2022-07-23] MEDS: QUETIAPINE FUMARATE 25 MG TABLET PO SCH ×3 (08:55→18:09)
[2022-07-23] MEDS: DIVALPROEX SPRINKLE 125 MG CAP.SPRINK PO SCH ×3 (08:55→18:06)
[2022-07-23] MEDS: ACETAMINOPHEN 325 MG TABLET PO PRN (08:55)
[2022-07-23] MEDS: MEMANTINE HCL 5 MG TABLET PO SCH ×2 (08:55→20:03)
[2022-07-23] MEDS: NUTRISOURCE FIBER 4 GM PACKET PO SCH ×2 (08:56→17:22)
--- NOTE | 2022-07-23 11:43 | NUR ---
Patient is up mine-chair, no S/S of discomforts noted, medication compliance, seen by Psychiatrist, patient not banging on table at this time, V/S WNLS, patient total care, skin is warm , dry and intact. Will continue to monitor.
[2022-07-23] MEDS: LORAZEPAM 0.5 MG TABLET PO SCH ×2 (13:00→17:44)
--- NOTE | 2022-07-23 13:30 | NUR ---
Patient sleeping at this time 1300 medication held at this time. will continue to monitor.
--- NOTE | 2022-07-23 15:06 | NUR ---
Patient awake at this time, no S/S of discomforts or distress, offered snacks, apple sauce, patient verbalized "Yes thank you, just one more", Inform patient was here to visit him earlier, patient smiled and ate 100% of snack. Will continue to monitor.
[2022-07-23 16:18] VITALS: BP 96/54
[2022-07-23 16:41] VITALS: BP 118/69
--- NOTE | 2022-07-23 18:14 | NUR ---
Up in mine-chair eating dinner, confused, ,no S/S of distress, V/S WNLS, 1700 medication given as ordered, needs prompting and guidance when providing care. ,Family at patient side. Emotional supprot provide, fall and safety precautions implemented.
--- NOTE | 2022-07-23 18:18 | NUR ---
Patient's son Storm is asking for Lovenox 40 mg/0.4ml at bedtime like they were giving to him at [facility]. 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
[2022-07-23 19:47] VITALS: BP 118/60
[2022-07-23] MEDS: LORAZEPAM 1 MG TABLET PO PRN (20:03)
[2022-07-23] MEDS: DONEPEZIL 5 MG TABLET PO SCH (20:03)
[2022-07-23] MEDS ORDERED: QUETIAPINE FUMARATE 25 MG TABLET PO SCH (21:00)
[2022-07-23] MEDS: TEMAZEPAM 7.5 MG CAPSULE PO PRN (21:33)
--- NOTE | 2022-07-24 04:35 | NUR ---
Patient continues to be AOx1, and total care. Pt still has moments of experiencing AH and VH, sometimes with aggression with grandiose delusions. Extra care taken when providing crushed medications to help prevent accidental aspiration. Crushed medication administration is well tolerated with chocolate pudding. Pt can become aggressive and even combative toward staff providing care d/t patient being disoriented and confused even with reassurance and re-education. x2 assist during these episodes. x1 assit when patient is compliant with care.
[2022-07-24 08:10] VITALS: BP 120/70
[2022-07-24] MEDS: LORAZEPAM 0.5 MG TABLET PO SCH ×3 (08:35→16:29)
[2022-07-24] MEDS: METFORMIN HCL 500 MG TABLET PO SCH ×2 (08:36→16:37)
[2022-07-24] MEDS: AMLODIPINE 5 MG TABLET PO SCH (08:36)
[2022-07-24] MEDS: DIVALPROEX SPRINKLE 125 MG CAP.SPRINK PO SCH ×3 (08:36→16:30)
[2022-07-24] MEDS: LINAGLIPTIN 5 MG TABLET PO SCH (08:36)
[2022-07-24] MEDS: QUETIAPINE FUMARATE 25 MG TABLET PO SCH ×3 (08:37→16:29)
[2022-07-24] MEDS: MEMANTINE HCL 5 MG TABLET PO SCH (08:37)
[2022-07-24] MEDS: BENZTROPINE MESYLATE 0.5 MG TABLET PO SCH ×2 (08:39→16:30)
[2022-07-24] MEDS: DOCUSATE SODIUM 100 MG/10 ML LIQUID UDC PO SCH ×2 (08:40→16:31)
[2022-07-24] MEDS: NUTRISOURCE FIBER 4 GM PACKET PO SCH ×2 (08:42→16:37)
[2022-07-24] MEDS: ACETAMINOPHEN 325 MG TABLET PO PRN (12:57)
--- NOTE | 2022-07-24 13:12 | NUR ---
SW Family Contact: This SW spoke with pt's son, Ramírez ([phone]) regarding the discharge update. Ramírez is agreeable that [facility] will [facility] [address] [place] [id number] on 07/25/22 if pt is not accepted to [facility].
[2022-07-24 15:26] VITALS: BP 115/68
--- NOTE | 2022-07-24 17:49 | NUR ---
Patient is awake and responding to his name, confused, impaired judgment, poor insight, gets easily irritable when redirection by staff, poor anger management, resistant with nursing care, disorganized, belligerent behavior when assisting him to change his diaper, compliant with his medications, unable to formulate a viable plan for self care, possible discharged in AM ,continue to monitor for safety, continue with treatment plan.
[2022-07-24 19:54] VITALS: BP 146/64
[2022-07-24] MEDS: QUETIAPINE FUMARATE 100 MG TABLET PO SCH (21:12)
[2022-07-24] MEDS: LORAZEPAM 1 MG TABLET PO PRN (21:13)
[2022-07-24] MEDS: MEMANTINE HCL 10 MG TABLET PO SCH (21:13)
[2022-07-24] MEDS: DONEPEZIL 5 MG TABLET PO SCH (21:13)
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
[2022-07-25 07:58] VITALS: BP 137/76
[2022-07-25] MEDS: DIVALPROEX SPRINKLE 125 MG CAP.SPRINK PO SCH ×4 (08:00→17:34)
[2022-07-25 08:16] LABS: HEMATOCRIT 41.3 % (36.7-47.1); MEAN CORPUSCULAR HEMOGLOBIN 30.8 uug (23.8-33.4); PLATELET COUNT (AUTO) 265 K/uL (152-348)
[2022-07-25 08:34] LABS: BILIRUBIN,TOTAL 0.5 mg/dL (0.2-1.0); CREATININE 0.8 mg/dL (0.6-1.3); POTASSIUM 3.3 mmol/L (3.5-5.1)
[2022-07-25] MEDS: LORAZEPAM 0.5 MG TABLET PO SCH ×4 (09:00→17:34)
[2022-07-25] MEDS: NUTRISOURCE FIBER 4 GM PACKET PO SCH ×2 (09:00→17:35)
[2022-07-25] MEDS: QUETIAPINE FUMARATE 25 MG TABLET PO SCH ×3 (09:00→17:34)
[2022-07-25] MEDS: DOCUSATE SODIUM 100 MG/10 ML LIQUID UDC PO SCH ×3 (09:07→17:34)
[2022-07-25] MEDS: BENZTROPINE MESYLATE 0.5 MG TABLET PO SCH ×3 (09:08→17:34)
[2022-07-25] MEDS: AMLODIPINE 5 MG TABLET PO SCH ×2 (09:10→14:20)
[2022-07-25] MEDS: LINAGLIPTIN 5 MG TABLET PO SCH ×2 (09:12→14:18)
[2022-07-25] MEDS: MEMANTINE HCL 10 MG TABLET PO SCH ×3 (09:12→20:32)
--- NOTE | 2022-07-25 09:26 | NUR ---
SW Discharge Update: SW left a message for Carmen in admissions at [facility] [phone] located at [address] [place] [id number] regarding pt's discharge plan to their location. Carmen stated that they can only inform me on pt's acceptance on same day. This SW will inform pt's son, Ramírez ([phone]) with the discharge update. Ramírez is agreeable [facility] [address] [place] [address] if pt is not accepted to [facility].
[2022-07-25 10:25] VITALS: BP 140/77
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
[2022-07-25] MEDS ORDERED: POTASSIUM CHLORIDE 20 MEQ POWDER PACKET PO ONE (12:00)
--- NOTE | 2022-07-25 12:45 | NUR ---
Pt is back from ER. PT has 10 sugey on the back of his sculp. CT scan was done and was negative. Sugey are to be removed on 08/04/2022. Pt is awake, A/O x1, as per baseline. Pt is provided with lunch.
--- NOTE | 2022-07-25 14:08 | NUR ---
SW Family Contact: This SW spoke with pt's son, Ramírez ([phone]) regarding the discharge update. Per family, they no longer want the pt to discharge to [facility]. [facility] [address] [place] [address] upon discharge. Family is agreeable.
[2022-07-25] MEDS: METFORMIN HCL 500 MG TABLET PO SCH ×2 (14:16→17:34)
[2022-07-25 15:09] VITALS: BP 139/69
--- NOTE | 2022-07-25 19:38 | NUR ---
Pt was scheduled for discharge today. Pt had a fall requiring sugey. Discharge was cancel. Pt is awake, confused as per baseline, compliant with medications. Pt's court hearing is to be rescheduled. Pt needs frequent prompting and redirecting.
[2022-07-25 20:02] VITALS: BP 126/77
[2022-07-25] MEDS: ACETAMINOPHEN 325 MG TABLET PO PRN (20:32)
[2022-07-25] MEDS: DONEPEZIL 5 MG TABLET PO SCH (20:32)
[2022-07-25] MEDS: QUETIAPINE FUMARATE 100 MG TABLET PO SCH (20:32)
[2022-07-25] MEDS: REMEDY ESSENTIAL ZINC PASTE 113 GM TOP SCH (20:33)
[2022-07-25] MEDS: LORAZEPAM 1 MG TABLET PO PRN (21:04)
--- NOTE | 2022-07-26 06:12 | NUR ---
Received patient in gerichair near the station, as per outgoing nurse, patient had 10 sugey at back of the head d/t incident that happened in the morning. Patients remains his baseline behavior, confused and somewhat agitated. Patient noted to be grabbing his head and grimacing. Staple site assessed, minimal bleeding noted, is clean, and no s/s of infection. His V/s at baseline, no distress noted, no noted alteration of LOC. Tylenol given and Ativan. Effective. He is closely observed near the station then transfer safely to bed. Patient slept well this shift. Frequent monitoring observed. He is kept safe at all times.
[2022-07-26 08:00] VITALS: BP 115/73
[2022-07-26] MEDS: DIVALPROEX SPRINKLE 125 MG CAP.SPRINK PO SCH ×3 (08:00→16:53)
[2022-07-26] MEDS: METFORMIN HCL 500 MG TABLET PO SCH ×3 (08:00→18:06)
[2022-07-26] MEDS: LORAZEPAM 0.5 MG TABLET PO SCH ×3 (09:00→17:00)
[2022-07-26] MEDS: MEMANTINE HCL 10 MG TABLET PO SCH ×2 (09:00→20:28)
[2022-07-26] MEDS: NUTRISOURCE FIBER 4 GM PACKET PO SCH ×2 (09:00→16:55)
[2022-07-26] MEDS: REMEDY ESSENTIAL ZINC PASTE 113 GM TOP SCH ×2 (09:00→20:44)
[2022-07-26] MEDS: DOCUSATE SODIUM 100 MG/10 ML LIQUID UDC PO SCH ×2 (09:00→16:51)
[2022-07-26] MEDS: BENZTROPINE MESYLATE 0.5 MG TABLET PO SCH ×2 (09:00→16:51)
[2022-07-26] MEDS: QUETIAPINE FUMARATE 25 MG TABLET PO SCH ×3 (09:00→16:53)
[2022-07-26] MEDS: LINAGLIPTIN 5 MG TABLET PO SCH (09:00)
[2022-07-26] MEDS: AMLODIPINE 5 MG TABLET PO SCH (09:00)
[2022-07-26 10:45] VITALS: BP 102/69
--- NOTE | 2022-07-26 13:38 | NUR ---
Patient had court hearing today, two way radio installer gave 30 Day hold probable cause for GD only.
--- NOTE | 2022-07-26 14:16 | NUR ---
Patient sleeping most of the morning, no S/S of SOB, discomfort noted, seen by neurologist and evaluated, new ordered noted and carried out. Patient is currently free from pain or any discomfort, emotional support provided, fall and safety precautions implemented, family visit today.
[2022-07-26] MEDS: LORAZEPAM 1 MG TABLET PO PRN (20:28)
[2022-07-26] MEDS: DONEPEZIL 5 MG TABLET PO SCH (20:28)
[2022-07-26] MEDS: QUETIAPINE FUMARATE 100 MG TABLET PO SCH (20:28)
[2022-07-26 21:17] VITALS: BP 141/58
[2022-07-27] MEDS: TEMAZEPAM 7.5 MG CAPSULE PO PRN (02:38)
[2022-07-27 03:53] LABS: *BILIRUBIN,URIN NEGATIVE (NEGATIVE); *COLOR,URINE YELLOW (YELLOW); *KETONES,URINE 1+ (NEGATIVE); LEUKOCYTE ESTERASE ,URINE 1+ (NEGATIVE); NITRITE, URINE NEGATIVE (NEGATIVE); PH,URINE 5.5 (5.0-8.0)
[2022-07-27 04:45] LABS: *BLOOD, URINE TRACE (NEGATIVE); *CLARITY,URINE SLIGHTLY CLOUDY (CLEAR); UGLUCOSE 1+ (NEGATIVE)
[2022-07-27 04:48] LABS: BACTERIA,URINE FEW /HPF (NONE SEEN); SQUAMOUS EPITHELIAL CELL,UR NONE SEEN /HPF (NONE SEEN)
--- NOTE | 2022-07-27 07:04 | NUR ---
Patient was very agitated at the beginning of the shift. However, he is compliant with med. He is still confused; combative, but easier to redirect. He slept for the majority of night.
[2022-07-27 07:36] VITALS: BP 134/76
[2022-07-27] MEDS: DIVALPROEX SPRINKLE 125 MG CAP.SPRINK PO SCH ×3 (08:00→16:13)
[2022-07-27] MEDS: METFORMIN HCL 500 MG TABLET PO SCH ×2 (08:00→17:43)
[2022-07-27] MEDS: NUTRISOURCE FIBER 4 GM PACKET PO SCH ×2 (09:00→16:15)
[2022-07-27] MEDS: MEMANTINE HCL 10 MG TABLET PO SCH ×2 (09:30→20:18)
[2022-07-27] MEDS: QUETIAPINE FUMARATE 25 MG TABLET PO SCH ×3 (09:30→16:13)
[2022-07-27] MEDS: LINAGLIPTIN 5 MG TABLET PO SCH (09:30)
[2022-07-27] MEDS: BENZTROPINE MESYLATE 0.5 MG TABLET PO SCH ×2 (09:30→16:13)
[2022-07-27] MEDS: LORAZEPAM 0.5 MG TABLET PO SCH ×3 (09:30→17:02)
[2022-07-27] MEDS: DOCUSATE SODIUM 100 MG/10 ML LIQUID UDC PO SCH ×2 (09:30→16:15)
[2022-07-27] MEDS: AMLODIPINE 5 MG TABLET PO SCH (09:30)
[2022-07-27] MEDS: REMEDY ESSENTIAL ZINC PASTE 113 GM TOP SCH ×2 (10:00→20:19)
--- NOTE | 2022-07-27 12:32 | NUR ---
SW Family Contact: This SW spoke with pt's son, Ramírez ([phone]) regarding the discharge update in person. Per family[facility] [address] [place] [phone] on 07/30/[address] Ying. Family is agreeable.
[2022-07-27] MEDS ORDERED: POTASSIUM CHLORIDE 20 MEQ TAB.PRT.SR PO ONE (14:30)
--- NOTE | 2022-07-27 14:44 | NUR ---
Patient is up in dayroom at this time sitting in mine-chair patient sleeping most of the morning, awake after lunch, medication compliant,no S/S of distress noted. family visit today during lunch, patient ate 100% of lunch. Patient is currently free from pain or any discomfort. Emotional support provided. Fall and safety precautions implemented.
[2022-07-27 15:39] VITALS: BP 122/82
[2022-07-27] MEDS: CEphaleXIN 500 MG CAPSULE PO SCH (16:13)
[2022-07-27] MEDS: DONEPEZIL 5 MG TABLET PO SCH (20:18)
[2022-07-27] MEDS: QUETIAPINE FUMARATE 100 MG TABLET PO SCH (20:18)
[2022-07-27] MEDS: LORAZEPAM 1 MG TABLET PO PRN (20:45)
[2022-07-27] MEDS: ACETAMINOPHEN 325 MG TABLET PO PRN (20:45)
[2022-07-27 20:50] VITALS: BP 124/77
--- NOTE | 2022-07-28 06:45 | NUR ---
Received Pt in hallway sitting in chair. Pt is confused, restless and agitated. Pt is compliant with medications. Pt was given a shower with 2 staff members. Pt is resistive with care and gets combative.Pt was put in bed after shower and slept for 7hrs and 45min.Pt was reposition and safety measures put in place. Continue to monitor for safety ,continue with treatment plan.
[2022-07-28 07:49] VITALS: BP 136/69
[2022-07-28] MEDS: MEMANTINE HCL 10 MG TABLET PO SCH ×2 (08:31→20:29)
[2022-07-28] MEDS: DIVALPROEX SPRINKLE 125 MG CAP.SPRINK PO SCH ×3 (08:31→16:42)
[2022-07-28] MEDS: LORAZEPAM 0.5 MG TABLET PO SCH ×3 (08:31→16:41)
[2022-07-28] MEDS: BENZTROPINE MESYLATE 0.5 MG TABLET PO SCH ×2 (08:31→16:41)
[2022-07-28] MEDS: AMLODIPINE 5 MG TABLET PO SCH (08:32)
[2022-07-28] MEDS: CEphaleXIN 500 MG CAPSULE PO SCH ×2 (08:32→16:41)
[2022-07-28] MEDS: QUETIAPINE FUMARATE 25 MG TABLET PO SCH ×3 (08:33→16:41)
[2022-07-28] MEDS: METFORMIN HCL 500 MG TABLET PO SCH ×2 (08:33→16:43)
[2022-07-28] MEDS: LINAGLIPTIN 5 MG TABLET PO SCH (08:33)
[2022-07-28] MEDS: NUTRISOURCE FIBER 4 GM PACKET PO SCH ×2 (08:37→16:42)
[2022-07-28] MEDS: DOCUSATE SODIUM 100 MG/10 ML LIQUID UDC PO SCH ×2 (08:37→16:42)
[2022-07-28] MEDS: REMEDY ESSENTIAL ZINC PASTE 113 GM TOP SCH ×2 (08:38→20:30)
[2022-07-28 18:09] VITALS: BP 124/73
[2022-07-28] MEDS: LORAZEPAM 1 MG TABLET PO PRN (20:29)
[2022-07-28] MEDS: ACETAMINOPHEN 325 MG TABLET PO PRN (20:29)
[2022-07-28] MEDS: QUETIAPINE FUMARATE 100 MG TABLET PO SCH (20:29)
[2022-07-28] MEDS: DONEPEZIL 5 MG TABLET PO SCH (20:29)
[2022-07-28 21:05] VITALS: BP 122/80
[2022-07-29 08:16] VITALS: BP 113/54
[2022-07-29] MEDS: LINAGLIPTIN 5 MG TABLET PO SCH (08:19)
[2022-07-29] MEDS: LORAZEPAM 0.5 MG TABLET PO SCH ×3 (08:19→17:07)
[2022-07-29] MEDS: DIVALPROEX SPRINKLE 125 MG CAP.SPRINK PO SCH ×3 (08:19→17:07)
[2022-07-29] MEDS: METFORMIN HCL 500 MG TABLET PO SCH ×2 (08:19→17:07)
[2022-07-29] MEDS: CEphaleXIN 500 MG CAPSULE PO SCH ×2 (08:20→17:07)
[2022-07-29] MEDS: MEMANTINE HCL 10 MG TABLET PO SCH ×2 (08:20→19:57)
[2022-07-29] MEDS: AMLODIPINE 5 MG TABLET PO SCH (08:20)
[2022-07-29] MEDS: QUETIAPINE FUMARATE 25 MG TABLET PO SCH ×3 (08:20→17:08)
[2022-07-29] MEDS: BENZTROPINE MESYLATE 0.5 MG TABLET PO SCH ×2 (08:20→17:08)
[2022-07-29] MEDS: NUTRISOURCE FIBER 4 GM PACKET PO SCH ×2 (08:21→17:08)
[2022-07-29] MEDS: DOCUSATE SODIUM 100 MG/10 ML LIQUID UDC PO SCH ×2 (08:21→17:08)
[2022-07-29] MEDS: REMEDY ESSENTIAL ZINC PASTE 113 GM TOP SCH ×2 (08:22→20:03)
[2022-07-29 16:28] VITALS: BP 143/99
--- NOTE | 2022-07-29 17:54 | NUR ---
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 Patient is A/O X 1 to person/ self. Reassurance given. Fall and safety precautions implemented.
[2022-07-29] MEDS: QUETIAPINE FUMARATE 100 MG TABLET PO SCH (19:57)
[2022-07-29] MEDS: DONEPEZIL 5 MG TABLET PO SCH (19:57)
[2022-07-29] MEDS: LORAZEPAM 1 MG TABLET PO PRN (19:57)
[2022-07-29 20:18] VITALS: BP 136/76
--- NOTE | 2022-07-30 06:50 | NUR ---
Patient still confused and disoriented, disheveled, and has poor concentration at best. Pt still can become combative if attempting to provide care without reassurance and patients. Extra care needed to prevent pt escalation/labile mood swings. Still experiencing AH and VH. Safety measures implemented.
--- NOTE | 2022-07-30 07:30 | NUR ---
Received report from am nurse Chuck pt is alert and oriented x2 . Assessed pt lying in bed alert but can has aggressive mood swings no signs of with auditory and visual hallucination. Pt is on a 30 day hold which expires on 08/21/22. Pt take medication hold no signs of distress noted. Pt has orders to be discharge today. Will continue to monitor for falls and safety.
[2022-07-30 07:58] VITALS: BP 151/76
[2022-07-30] MEDS: DIVALPROEX SPRINKLE 125 MG CAP.SPRINK PO SCH (08:00)
[2022-07-30] MEDS: METFORMIN HCL 500 MG TABLET PO SCH (08:00)
[2022-07-30] MEDS: LORAZEPAM 0.5 MG TABLET PO SCH (09:25)
[2022-07-30] MEDS: CEphaleXIN 500 MG CAPSULE PO SCH (09:25)
[2022-07-30 09:26] VITALS: BP 102/72
[2022-07-30] MEDS: NUTRISOURCE FIBER 4 GM PACKET PO SCH (09:26)
[2022-07-30] MEDS: AMLODIPINE 5 MG TABLET PO SCH (09:26)
[2022-07-30] MEDS: MEMANTINE HCL 10 MG TABLET PO SCH (09:26)
[2022-07-30] MEDS: QUETIAPINE FUMARATE 25 MG TABLET PO SCH (09:26)
[2022-07-30] MEDS: LINAGLIPTIN 5 MG TABLET PO SCH (09:27)
[2022-07-30] MEDS: REMEDY ESSENTIAL ZINC PASTE 113 GM TOP SCH (09:27)
[2022-07-30] MEDS: DOCUSATE SODIUM 100 MG/10 ML LIQUID UDC PO SCH (09:31)
[2022-07-30] MEDS: BENZTROPINE MESYLATE 0.5 MG TABLET PO SCH (09:31)
--- NOTE | 2022-07-30 10:37 | NUR ---
SW Discharge Note: Pt will be discharged to [facility] located at [address] [place] [phone] ([phone]) via ambulance transportation at 11AM. Pts sontSorm ([phone]) and pts are aware and agreeable with the discharge plan. Pt is aware and agreeable with discharge plan. Pt is alert and oriented x2, is unable to plan for self-care at this time. However, pt is willing to accept care at SNF. Pt denies any suicidal or homicidal ideation. Pt will follow-up at the facility with Psychiatrist, Dr. Ying ([phone]) and Button Breaker Operator, Dr. Lowe. Pt presents with calm mood and congruent affect. PHARMACY: [facility] ([phone]) [address] [place] [address].
--- NOTE | 2022-07-30 12:04 | NUR ---
DISCHARGE NOTE: PT WAS GIVEN AM MEDICATION AND BLOOD SUGAR WAS TAKEN 126 PT NO SIGNS OF DIABETIC REACTION NOTED. PT TOOK MEDS CRUSHED IN CHOCOLATE PUDDING NO ADVERSE REACTION NOTED. REPORT GIVEN TO DROP WORKER TOOK BLOOD SUGAR BEFORE LEAVING [facility] WHICH IS 126 AND NO SIGNS OF DISTRESS NOTED. PT INFORMED ABOUT NEW FACILITY. COVID TEST TAKING BEFORE LEAVING [facility] IT IS NEGATIVE. REPORT GIVEN TO [facility] BY CHARGE NURSE. PT TAKEN VIA GURNEY ACCOMPANIED BY DROP WORKER NO SIGNS OF RESPIRATORY DISTRESS NOTED.
[2022-07-30] MEDS ORDERED: DIVA125C2 PO (22:20)
[2022-07-30] MEDS ORDERED: MEMA10TA PO (22:20)
[2022-07-30] MEDS ORDERED: QUET25TA PO (22:20)
[2022-07-30] MEDS ORDERED: DONE5TAB7 PO (22:20)
[2022-07-30] MEDS ORDERED: LINA5TAB PO (22:20)
[2022-07-30] MEDS ORDERED: AMLO5TAB4 PO (22:20)
[2022-07-30] MEDS ORDERED: QUET100T PO (22:20)
[2022-07-30] MEDS ORDERED: DOCU-141 PO (22:20)
[2022-07-30] MEDS ORDERED: METF-440 PO (22:20)
[2022-07-31 11:09] LABS: HEMATOCRIT 42.8 % (36.7-47.1); MEAN CORPUSCULAR HEMOGLOBIN 30.3 uug (23.8-33.4); MEAN CORPUSCULAR VOLUME 92.2 fL (73.0-96.2); PLATELET COUNT (AUTO) 230 K/uL (152-348)
[2022-07-31 11:22] LABS: BILIRUBIN,TOTAL 0.6 mg/dL (0.2-1.0); POTASSIUM 3.7 mmol/L (3.5-5.1); TOTAL PROTEIN, SERUM 7.9 g/dL (6.4-8.2)
== END 2022-07-30 11:30 | DRG 885 ==
LOC: ER 19:28 → GPS 22:15
PROVIDERS: ADMIT Psychiatry & Neurology Psychosomatic Medicine; ATTEND Nurse Practitioner Acute Care
DX: F31.9 Bipolar disorder, unspecified (principal); G93.41 Metabolic encephalopathy; F02.83 Dementia in other diseases classified elsewhere, unspecified severity, with mood disturbance; N39.0 Urinary tract infection, site not specified; E44.1 Mild protein-calorie malnutrition; G30.9 Alzheimer's disease, unspecified; S01.01XA Laceration without foreign body of scalp, initial encounter; W19.XXXA Unspecified fall, initial encounter; Y92.230 Patient room in hospital as the place of occurrence of the external cause; E11.9 Type 2 diabetes mellitus without complications; G31.83 Neurocognitive disorder with Lewy bodies; S06.0X0A Concussion without loss of consciousness, initial encounter; K59.00 Constipation, unspecified; Z79.899 Other long term (current) drug therapy; Z79.84 Long term (current) use of oral hypoglycemic drugs; E87.6 Hypokalemia; Z20.822 Contact with and (suspected) exposure to COVID-19
CPT/HCPCS: 36415; 70450; 71045; 80164; 82747; 83735; 84100; 84443; 85014; 85025; A4663; C1758

== ENCOUNTER 2022-07-25 10:23 | Emergency (ER) | payer MEDICARE, BC ==
[~2022-07-25] VITALS: Ht 170.2 cm; Wt 74.8 kg
[~2022-07-25 10:23] MED LIST: PRAV20TA4 PO; SITA100T PO
[2022-07-25] MEDS ORDERED: TDAP DIPH,PERTUSS,TET VAC/PF 0.5 ML DISP.SYRIN IM ONE ×2 (10:30→10:41)
[2022-07-25] MEDS ORDERED: LIDOCAINE HCL 1% 20 ML VIAL ONE (10:34)
--- NOTE | 2022-07-25 10:50 | NUR ---
Irrigated head laceration with normal saline.
[2022-07-25] MEDS ORDERED: NEOMY/BACITRA/POLYMYXIN B OINT UD PACKET TP ONE ×2 (11:59→12:00)
--- NOTE | 2022-07-25 12:03 | NUR ---
Antibiotic ointment applied onto wound. Dressing applied.
--- NOTE | 2022-07-25 12:26 | NUR ---
Patient discharged to home in stable condition. Written and verbal after care instructions given. Patient verbalizes understanding of instructions. Explained that sugey should be removed within 10 to 14 days and to keep dry for the first few days. Stressed the importance of safety precautions for patient and to ambulate ONLY with assistance. Stressed follow up or return to ER for worsening s/s.
[2022-07-25 12:27] VITALS: BP 140/87
--- NOTE | 2022-07-25 12:39 | NUR ---
Patient picked up by RN from [facility]. Patient is going back to mental health unit.
== END 2022-07-25 12:40 ==
LOC: ER 10:23
DX: S01.01XA Laceration without foreign body of scalp, initial encounter (principal); W18.30XA Fall on same level, unspecified, initial encounter; Y92.230 Patient room in hospital as the place of occurrence of the external cause; M50.30 Other cervical disc degeneration, unspecified cervical region; M48.02 Spinal stenosis, cervical region; G30.9 Alzheimer's disease, unspecified; F02.80 Dementia in other diseases classified elsewhere, unspecified severity, without behavioral disturbance, psychotic disturbance, mood disturbance, and anxiety; F32.A Depression, unspecified
CPT/HCPCS: 99284; 70450; 72125; 90715; 90471; 12002; J3490; A4663

== ENCOUNTER 2022-07-30 17:39 | Inpatient (IN) | payer MEDICARE, BC ==
[~2022-07-30] VITALS: Ht 170.2 cm; Wt 75.7 kg
--- NOTE | 2022-07-30 17:45 | NUR ---
Spoke with Sunny from crisis team via telephone, he stated he will be in to do a psych eval.
--- NOTE | 2022-07-30 18:12 | NUR ---
Pt is disoriented and tried to walk out the room, unsteady gait. Dr ramos made aware.
[2022-07-30] MEDS ORDERED: LORAZEPAM 2 MG/1 ML VIAL ONE (18:19)
[2022-07-30] MEDS ORDERED: OLANZAPINE 10 MG VIAL IM ONE ×2 (18:19→18:45)
[2022-07-30] MEDS ORDERED: LORAZEPAM 2 MG/1 ML VIAL IM ONE (18:45)
--- NOTE | 2022-07-30 19:18 | NUR ---
Recieved report from Maureen NEWSOME.
--- NOTE | 2022-07-30 19:20 | NUR ---
Rubber Stamp Die Inspector Sunny in room. Samson abreu in progress.
--- NOTE | 2022-07-30 20:33 | NUR ---
Patient in room laying down.
--- NOTE | 2022-07-30 20:45 | NUR ---
Called [facility] to and gave report.
[2022-07-30] MEDS ORDERED: ACETAMINOPHEN 650 MG SUPP.RECT RC PRN (21:30)
[2022-07-30] MEDS ORDERED: MAG HYDROX/AL HYDROX/SIMETH 30 ML LIQUID UDC PO PRN (21:30)
[2022-07-30] MEDS ORDERED: MAGNESIUM HYDROXIDE 30 ML LIQUID UDC PO PRN (21:30)
--- NOTE | 2022-07-30 21:30 | NUR ---
Transferred Patient to [facility] via [facility]. MERCEDEZ Isbell made aware of patient's arrival.
[2022-07-30] MEDS ORDERED: METF-440 PO (22:20)
[2022-07-30] MEDS ORDERED: DOCU-141 PO (22:20)
[2022-07-30] MEDS ORDERED: AMLO5TAB4 PO (22:20)
[2022-07-30] MEDS ORDERED: QUET100T PO (22:20)
[2022-07-30] MEDS ORDERED: QUET25TA PO (22:20)
[2022-07-30] MEDS ORDERED: MEMA10TA PO (22:20)
[2022-07-30] MEDS ORDERED: DONE5TAB7 PO (22:20)
[2022-07-30] MEDS ORDERED: DIVA125C2 PO (22:20)
[2022-07-30] MEDS ORDERED: LINA5TAB PO (22:20)
[2022-07-30] MEDS: LORAZEPAM 1 MG TABLET PO PRN (22:27)
[2022-07-30] MEDS: TEMAZEPAM 7.5 MG CAPSULE PO PRN (22:27)
--- NOTE | 2022-07-31 00:05 | NUR ---
GPS: Admitted to unit earlier around 2124 an 86 yr.old male to be under the care of /. Pt.was just discharged hrs ago from this unit but got aggressive towards a staff member at the snf where he was discharged to. Pt.was placed on a 72 hr.hold for GD. Pt.is confused,disoriented. Has poor insight to his present situation. Has impaired judgment. Uncooperative,combative,restless during incontinence care earlier. Personal belongings inventoried. Unit rules explained by staff despite pt.being confused. Pt.had a history of fall here that resulted a scalp laceration with 10 sugey on back of head which are dry and intact. No s/s of infection noted. Fall precautions initiated.Pt's rights handbook/advisement given. Behavior monitoring continues. Pt's aware of pt's admission to the unit.
--- NOTE | 2022-07-31 06:11 | NUR ---
GPS: Pt.slept for 3.45 last night. Up on mine-chair at this time in front of nurses station for safety. Confused,disoriented and disorganized. Observed to be mumbling to self. Pt.was uncooperative/resistant to nursing care although without any striking out episodes noted. Procedures explained prior to administration. Re-directed prn. Fall precautions observed. Will continue to monitor.
[2022-07-31] MEDS: REMEDY ESSENTIAL ZINC PASTE 113 GM TOP PRN ×2 (06:22→20:42)
[2022-07-31 08:00] VITALS: BP 131/73
[2022-07-31] MEDS: LORAZEPAM 1 MG TABLET PO PRN (08:12)
--- NOTE | 2022-07-31 09:37 | NUR ---
SW ATTESTATION: Kendal Driscoll CRIMPING PRESS OPERATOR, ASW attest to the accuracy of the psychosocial done on July 06, 2022, by TAYLOR Birmingham. On the admission for July 06, 2022, the pt was admitted to [facility]. Pt was living at [facility] located at [address] [place] [id number] . Pt was brought due to increased confusion and agitation per report. The pt may return once stable, However, this SW spoke with patient's son, Storm ([phone]) in person and discussed pt's discharge plan to refer the pt to [facility] [address] [facility] [address] ([phone]); [facility] [phone] located at [address] [facility] [address], and [facility]. Storm and his mother were grateful and agreeable to the psychiatrist, Dr. Antunez recommended facility, [facility] as well should these locations not accept the pt upon discharge. The patient appears to have a good support system by his son and . Patients mood appears with a flat affect, confused and restless at times throughout the day. Pt appeared alert and oriented x1. Pt denied suicidal and homicidal ideation. SW was unable to ascertain visual and auditory hallucination. Pt was unable to focus and appeared to be mentally preoccupied on his surroundings. On July 30, 2022, pt was stable and cleared by Dr. Ying to discharge to [facility] located at [address] [place] [address] ([phone]) via ambulance transportation at 11AM. Pts son, Storm ([phone]) and pts were aware and agreeable with the discharge plan. Pt was aware and agreeable with discharge plan. Pt is alert and oriented x2, is unable to plan for self-care at this time. However, pt is willing to accept care at SNF. Pt denies any suicidal or homicidal ideation. Pt will follow-up at the facility with Psychiatrist, Dr. Ying ([phone]) and Computer Tape Librarian, Dr. Nuthalapty. Pt presents with calm mood and congruent affect. Pt was readmitted on July 30, 2022, at night due to combative behavior towards staff at [facility]. During this writers reevaluation, pt appeared confused and guarded. Pt requires assistance with his ADLs. Pt appeared with a flat affect and selectively mute. Pt appears alert and oriented x1. Pt denied suicidal and homicidal ideation. Pt denied visual and auditory hallucination. Pt was unable to focus and appeared to be mentally preoccupied with his surroundings. BHAVIN spoke with pt's son, Storm ([phone]) during this admission and discussed pt's discharge plan to refer to a different senior living facility per Dr. Antunez recommendation. Storm is agreeable and appreciative of this SWs and Dr. Antunez continued help. BHAVIN will continue to work with the ptMD, and inform Storm with his treatment and discharge updates.
[2022-07-31] MEDS ORDERED: DEXTROSE 50% 50 ML DISP.SYRIN IV PRN (10:30)
--- NOTE | 2022-07-31 10:54 | NUR ---
BHAVIN Family Contact: BHAVIN spoke with pt's son, Storm ([phone]) regarding pt's current status and discharge plan. Storm is aware that pt will not be returning to [facility]. Storm is aware and agreeable that pt will be referred to a different usp facility. Storm is appreciative for our team's help. SW will continue to inform Storm on further updates.
[2022-07-31] MEDS: BLOOD SUGAR DIAGNOSTIC 1 EACH STRIP VI SCH ×3 (12:24→20:27)
[2022-07-31] MEDS ORDERED: DIVALPROEX 500 MG TABLET.DR PO SCH (13:00)
[2022-07-31] MEDS: DIVALPROEX SPRINKLE 125 MG CAP.SPRINK PO SCH ×2 (13:15→16:14)
[2022-07-31] MEDS: QUETIAPINE FUMARATE 25 MG TABLET PO SCH ×2 (13:16→16:13)
--- NOTE | 2022-07-31 15:05 | NUR ---
Patient is confused, forgetful, disorganized, agitated and irritable at times, disoriented, compliant with medications. 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 Active listening provided. Fall and safety precautions implemented.
[2022-07-31] MEDS: ACETAMINOPHEN 325 MG TABLET PO PRN (16:14)
[2022-07-31] MEDS: DOCUSATE SODIUM 100 MG/10 ML LIQUID UDC PO SCH (16:33)
[2022-07-31 16:34] VITALS: BP 128/80
[2022-07-31] MEDS ORDERED: DOCUSATE SODIUM 100 MG CAPSULE PO SCH (17:00)
[2022-07-31] MEDS: METFORMIN HCL 500 MG TABLET PO SCH (17:41)
[2022-07-31 20:02] VITALS: BP 132/76
[2022-07-31] MEDS: ATORVASTATIN 10 MG TABLET PO SCH (20:33)
[2022-07-31] MEDS: DONEPEZIL 5 MG TABLET PO SCH (20:33)
[2022-07-31] MEDS: QUETIAPINE FUMARATE 100 MG TABLET PO SCH (20:33)
[2022-07-31] MEDS: MEMANTINE HCL 10 MG TABLET PO SCH (20:33)
[2022-07-31] MEDS: INSULIN REGULAR, HUMAN 300 UNITS/3 ML VIAL SQ PRN (20:43)
[2022-08-01] MEDS: BLOOD SUGAR DIAGNOSTIC 1 EACH STRIP VI SCH ×4 (06:31→21:01)
--- NOTE | 2022-08-01 06:41 | NUR ---
GPS: Pt.slept 8 hrs.last night. Remains confused,disoriented and disorganized. Combative and uncooperative during incontinence care despite explanation of procedures. Insight and judgment remains impaired. Re-directed prn. Blood sugar at this time is 163mg/dl. Repositioned for comfort. Will continue to monitor.
[2022-08-01] MEDS: REMEDY ESSENTIAL ZINC PASTE 113 GM TOP PRN (06:58)
[2022-08-01 07:22] LABS: HEMATOCRIT 40.3 % (36.7-47.1); MEAN CORPUSCULAR HEMOGLOBIN 30.7 uug (23.8-33.4); MEAN CORPUSCULAR VOLUME 92.2 fL (73.0-96.2); PLATELET COUNT (AUTO) 207 K/uL (152-348)
[2022-08-01 07:36] LABS: CREATININE 0.9 mg/dL (0.6-1.3); MAGNESIUM 1.7 mg/dL (1.8-2.4); PHOSPHOROUS 3.2 mg/dL (2.5-4.9); POTASSIUM 3.5 mmol/L (3.5-5.1)
[2022-08-01 08:00] VITALS: BP 149/78
[2022-08-01] MEDS: METFORMIN HCL 500 MG TABLET PO SCH ×2 (09:00→17:16)
[2022-08-01] MEDS: LINAGLIPTIN 5 MG TABLET PO SCH (09:30)
[2022-08-01] MEDS ORDERED: MAGNESIUM OXIDE 400 MG TABLET PO ONE (09:45)
[2022-08-01] MEDS: QUETIAPINE FUMARATE 25 MG TABLET PO SCH ×3 (10:09→16:46)
[2022-08-01] MEDS: MEMANTINE HCL 10 MG TABLET PO SCH ×2 (10:09→20:37)
[2022-08-01] MEDS: AMLODIPINE 5 MG TABLET PO SCH (10:10)
[2022-08-01] MEDS: DIVALPROEX SPRINKLE 125 MG CAP.SPRINK PO SCH ×3 (10:10→16:46)
[2022-08-01] MEDS: DOCUSATE SODIUM 100 MG/10 ML LIQUID UDC PO SCH ×2 (10:10→16:47)
--- NOTE | 2022-08-01 10:23 | NUR ---
Patient sleeping during the morning, did not have breakfast, patient worked with PT at this time and was transfer to [facility], more awake now, eat half of banana with assistance. Will continue to monitor.
--- NOTE | 2022-08-01 10:25 | NUR ---
Per son's Storm request, No Bake Molder was informed about patient's blood thinners in the past. Storm wants his father on blood thinners again, No Bake Molder will call storm and evaluate his father's case.
[2022-08-01] MEDS: INSULIN REGULAR, HUMAN 300 UNIT/3 ML VIAL SQ PRN ×2 (12:39→21:05)
--- NOTE | 2022-08-01 12:46 | NUR ---
Patient up in Adele-chair, sleeping at this time with no S/S of distress. Will continue to monitor.
[2022-08-01 16:10] VITALS: BP 112/76
[2022-08-01 20:19] VITALS: BP 133/88
[2022-08-01] MEDS: ATORVASTATIN 10 MG TABLET PO SCH (20:37)
[2022-08-01] MEDS: QUETIAPINE FUMARATE 100 MG TABLET PO SCH (20:37)
[2022-08-01] MEDS: LORAZEPAM 1 MG TABLET PO PRN (20:37)
[2022-08-01] MEDS: DONEPEZIL 5 MG TABLET PO SCH (20:38)
[2022-08-01] MEDS: TEMAZEPAM 7.5 MG CAPSULE PO PRN (23:47)
--- NOTE | 2022-08-02 00:33 | NUR ---
Patient expressed verbal outbursts of anger and frustration, exhibiting his usual delusional, and hallucinatory episodes intermittently throughout the first few hours of the shift, prior to falling asleep after insomnia medication was taken. AOx1 confused, disoriented, and unable to comprehend instructions. Very hard to re-direct, extra time and care must be taken for patient to remain calm and non-disruptive or destructive to others in the unit. Safety measures carried out. Will continue to monitor.
[2022-08-02] MEDS: BLOOD SUGAR DIAGNOSTIC 1 EACH STRIP VI SCH ×4 (07:04→20:42)
[2022-08-02 08:00] VITALS: BP 112/79
[2022-08-02] MEDS: DIVALPROEX SPRINKLE 125 MG CAP.SPRINK PO SCH ×3 (10:00→16:59)
[2022-08-02] MEDS: MEMANTINE HCL 10 MG TABLET PO SCH ×2 (10:00→20:46)
[2022-08-02] MEDS: DOCUSATE SODIUM 100 MG/10 ML LIQUID UDC PO SCH ×2 (10:00→17:04)
[2022-08-02] MEDS: QUETIAPINE FUMARATE 25 MG TABLET PO SCH ×3 (10:01→16:59)
[2022-08-02] MEDS: LINAGLIPTIN 5 MG TABLET PO SCH (10:01)
[2022-08-02] MEDS: AMLODIPINE 5 MG TABLET PO SCH (10:02)
[2022-08-02] MEDS: METFORMIN HCL 500 MG TABLET PO SCH ×2 (10:03→18:04)
[2022-08-02 11:06] LABS: *IMMUNOGLOBULIN G, SERUM 1967 mg/dL (603-1613)
[2022-08-02] MEDS ORDERED: ENOXAPARIN SODIUM 80 MG/0.8 ML DISP.SYRIN SQ SCH (13:00)
[2022-08-02 13:14] LABS: HEMATOCRIT 43.8 % (36.7-47.1); MEAN CORPUSCULAR HEMOGLOBIN 30.5 uug (23.8-33.4); MEAN CORPUSCULAR VOLUME 92.2 fL (73.0-96.2); PLATELET COUNT (AUTO) 220 K/uL (152-348)
--- NOTE | 2022-08-02 13:15 | NUR ---
Patient was seen by Information Strategist, Maricarmen with orders for Lovenox; however, per Maricarmen "do not administer Lovenox until all lab results are rec'd" Maricarmen ordered CBC/PT/INR-labs are been drawn at this time. Will follow up as ordered.
[2022-08-02] MEDS: LORAZEPAM 1 MG TABLET PO PRN (13:31)
[2022-08-02 15:50] VITALS: BP 112/77
--- NOTE | 2022-08-02 15:56 | NUR ---
Patient is confused, forgetful, disoriented, disorganized, agitated and combative at times. Patient made a fist and tried to punch staff this morning when nursing care was being provided. Patient gets anxious and starts banging hands on mine chair tray and de dios. Patient was given Ativan 1 mg at 13:31, effective. Patient blood glucose was 218 at lunch, but patient refused insulin coverage. Active listening provided. Fall and safety precautions implemented.
[2022-08-02] MEDS: INSULIN REGULAR, HUMAN 300 UNIT/3 ML VIAL SQ PRN (17:01)
[2022-08-02] MEDS: QUETIAPINE FUMARATE 100 MG TABLET PO SCH (20:46)
[2022-08-02] MEDS: ATORVASTATIN 10 MG TABLET PO SCH (20:46)
[2022-08-02] MEDS: DONEPEZIL 5 MG TABLET PO SCH (20:46)
[2022-08-02] MEDS: ENOXAPARIN SODIUM 80 MG/0.8 ML DISP.SYRIN SQ SCH (21:01)
[2022-08-02 21:14] VITALS: BP 121/76
[2022-08-02] MEDS: REMEDY ESSENTIAL ZINC PASTE 113 GM TOP PRN (22:49)
--- NOTE | 2022-08-02 23:18 | NUR ---
GPS: Pt. asleep at this time during rounds. Breathing easy and unlabored. Kept dry and comfortable. Bedtime meds given earlier and was compliant. Spoonfed during snacktime earlier and ashok.well. Remains confused,disoriented and disorganized. Insight and judgment remains impaired. Less combative and resistant during incontinence care . Started on Lovenox as ordered. No active bleeding noted. Will continue to monitor.
[2022-08-03 01:06] LABS: CARBOHYDRATE ANTIGEN, 19-9 14 U/mL (0-35)
--- NOTE | 2022-08-03 05:54 | NUR ---
GPS: Pt.now awake at this time Confused,disoriented,agitated,combative and trying to strike out-at staff during incontinence care. States " Get out of my house". Re-directed at this time. Reality re-orientation provided. Has no insight to his present situation. Needs attended. Will continue to monitor for further escalation of behavior.
[2022-08-03] MEDS: BLOOD SUGAR DIAGNOSTIC 1 EACH STRIP VI SCH ×4 (06:33→20:37)
[2022-08-03] MEDS: REMEDY ESSENTIAL ZINC PASTE 113 GM TOP PRN (06:56)
[2022-08-03 07:11] VITALS: BP 117/69
[2022-08-03 07:25] LABS: HEMATOCRIT 41.2 % (36.7-47.1); MEAN CORPUSCULAR HEMOGLOBIN 30.5 uug (23.8-33.4); MEAN CORPUSCULAR VOLUME 91.6 fL (73.0-96.2); PLATELET COUNT (AUTO) 206 K/uL (152-348)
[2022-08-03] MEDS: METFORMIN HCL 500 MG TABLET PO SCH ×2 (08:00→17:06)
[2022-08-03 08:06] LABS: A/G RATIO 0.6 (0.7-1.7); ALBUMIN 2.7 g/dL (2.9-4.4); ALPHA-1-GLOBULIN 0.3 g/dL (0.0-0.4); ALPHA-2-GLOBULIN 0.8 g/dL (0.4-1.0); BETA GLOBULIN 1.1 g/dL (0.7-1.3); GAMMA GLOBULIN 1.9 g/dL (0.4-1.8); GLOBULIN, TOTAL 4.2 g/dL (2.2-3.9); M-SPIKE Not Observed g/dL (Not Observed)
[2022-08-03] MEDS: LINAGLIPTIN 5 MG TABLET PO SCH (09:00)
[2022-08-03] MEDS: DIVALPROEX SPRINKLE 125 MG CAP.SPRINK PO SCH ×2 (09:24→20:36)
[2022-08-03] MEDS: MEMANTINE HCL 10 MG TABLET PO SCH ×2 (09:24→20:35)
[2022-08-03] MEDS: QUETIAPINE FUMARATE 25 MG TABLET PO SCH ×3 (09:25→17:05)
[2022-08-03] MEDS: AMLODIPINE 5 MG TABLET PO SCH (09:25)
[2022-08-03] MEDS: DOCUSATE SODIUM 100 MG/10 ML LIQUID UDC PO SCH ×2 (09:26→17:06)
--- NOTE | 2022-08-03 09:31 | NUR ---
Patient blood glucose is 120, patient refuses to eat breakfast this morning, scheduled Tradjenta and Metformin not given.
[2022-08-03] MEDS: ENOXAPARIN SODIUM 80 MG/0.8 ML DISP.SYRIN SQ SCH ×2 (09:44→20:44)
--- NOTE | 2022-08-03 15:18 | NUR ---
Patient is less combative or agitated, confused, talkative, forgetful, compliant with medications, disoriented. Patient states "Let's have drinks on me". Patient blood glucose is 183, 3 units of regular insulin given per sliding scale. Reassurance given. Fall and safety precautions implemented.
[2022-08-03 16:32] VITALS: BP 103/69
--- NOTE | 2022-08-03 18:25 | NUR ---
Patient blood glucose is 170, insulin not given due to patient not eating enough.
[2022-08-03 19:06] LABS: PTT-LA 34.1 sec (0.0-43.5); THROMBIN TIME 16.8 sec (0.0-23.0)
[2022-08-03 20:29] VITALS: BP 122/79
[2022-08-03] MEDS: DONEPEZIL 5 MG TABLET PO SCH (20:35)
[2022-08-03] MEDS: LORAZEPAM 1 MG TABLET PO PRN (20:35)
[2022-08-03] MEDS: QUETIAPINE FUMARATE 100 MG TABLET PO SCH (20:35)
[2022-08-03] MEDS: ATORVASTATIN 10 MG TABLET PO SCH (20:35)
[2022-08-03] MEDS: INSULIN REGULAR, HUMAN 300 UNIT/3 ML VIAL SQ PRN (20:43)
[2022-08-03] MEDS: TEMAZEPAM 7.5 MG CAPSULE PO PRN (23:09)
--- NOTE | 2022-08-04 04:29 | NUR ---
Received Pt in hallway sitting in geriatric chair, restless,anxious, banging on the tray table, sliding down the chair.Pt is confused, disoriented, combative and uncooperative with care with nursing care.Pt was having VH/AH at beginning of shift.Pt is compliant with medication but needs prompting. Pt took sleeping PRN and slept well.Diaper was change and Pt was reposition. Safety precautions put in place, no distress noted. Continue to monitor for safety, continue with treatment plan.
[2022-08-04] MEDS: BLOOD SUGAR DIAGNOSTIC 1 EACH STRIP VI SCH ×4 (06:30→20:42)
[2022-08-04] MEDS: METFORMIN HCL 500 MG TABLET PO SCH ×3 (08:00→17:32)
[2022-08-04 08:06] VITALS: BP 154/85
--- NOTE | 2022-08-04 08:30 | NUR ---
Sleeping refused to eat breakfast at this time
[2022-08-04] MEDS: DIVALPROEX SPRINKLE 125 MG CAP.SPRINK PO SCH ×3 (08:55→20:32)
[2022-08-04] MEDS: DOCUSATE SODIUM 100 MG/10 ML LIQUID UDC PO SCH ×3 (08:55→16:13)
[2022-08-04] MEDS: MEMANTINE HCL 10 MG TABLET PO SCH ×3 (08:55→20:32)
[2022-08-04] MEDS: LINAGLIPTIN 5 MG TABLET PO SCH ×2 (08:56→09:00)
[2022-08-04] MEDS: QUETIAPINE FUMARATE 25 MG TABLET PO SCH ×4 (08:56→16:13)
[2022-08-04] MEDS: AMLODIPINE 5 MG TABLET PO SCH ×2 (08:56→09:00)
[2022-08-04] MEDS: ENOXAPARIN SODIUM 80 MG/0.8 ML DISP.SYRIN SQ SCH ×2 (08:57→20:44)
[2022-08-04] MEDS: ACETAMINOPHEN 325 MG TABLET PO PRN (08:57)
[2022-08-04] MEDS: GLUCERNA SHAKE 237 ML CAN PO SCH ×2 (10:15→17:33)
--- NOTE | 2022-08-04 11:00 | NUR ---
Started to wake up. Incontinence care and sponge bath done. Transferred to mine chair. Assisted with breakfast but still sleepy. morning meal and medications not given.
[2022-08-04 11:55] LABS: HEMATOCRIT 41.9 % (36.7-47.1); MEAN CORPUSCULAR HEMOGLOBIN 30.6 uug (23.8-33.4); PLATELET COUNT (AUTO) 206 K/uL (152-348)
--- NOTE | 2022-08-04 13:45 | NUR ---
Still sleeping after sponge bath and transfer to mine chair. Not able to feed lunch
--- NOTE | 2022-08-04 15:00 | NUR ---
Fully awake, calm. Assisted with lunch then went back to sleep
[2022-08-04 16:00] VITALS: BP 129/74
--- NOTE | 2022-08-04 17:00 | NUR ---
Family at bedside calm.
[2022-08-04] MEDS: INSULIN REGULAR, HUMAN 300 UNIT/3 ML VIAL SQ PRN ×2 (17:47→20:43)
[2022-08-04 20:08] VITALS: BP 112/67
[2022-08-04] MEDS: LORAZEPAM 1 MG TABLET PO PRN (20:31)
[2022-08-04] MEDS: QUETIAPINE FUMARATE 100 MG TABLET PO SCH (20:32)
[2022-08-04] MEDS: ATORVASTATIN 10 MG TABLET PO SCH (20:34)
[2022-08-04] MEDS: DONEPEZIL 5 MG TABLET PO SCH (20:36)
[2022-08-05] MEDS: TEMAZEPAM 7.5 MG CAPSULE PO PRN (00:46)
--- NOTE | 2022-08-05 05:38 | NUR ---
Received Pt in hallway sitting in geriatric chair, restless, anxious, banging on the tray table and disrobing.Pt is confused, combative and uncooperative nursing care. Pt is compliant with medication but needs prompting. Diaper was changed and pt was repositioned. Safety precautions put in place.Pt slept well thru out the night, No distress notes. Continue to monitor for behavior escalation and safety. Continue with care plan.
[2022-08-05] MEDS: BLOOD SUGAR DIAGNOSTIC 1 EACH STRIP VI SCH ×4 (06:35→21:20)
[2022-08-05 07:33] LABS: HEMATOCRIT 39.4 % (36.7-47.1); MEAN CORPUSCULAR HEMOGLOBIN 30.2 uug (23.8-33.4); MEAN CORPUSCULAR VOLUME 91.7 fL (73.0-96.2); PLATELET COUNT (AUTO) 197 K/uL (152-348)
[2022-08-05] MEDS: GLUCERNA SHAKE 237 ML CAN PO SCH ×2 (08:00→17:00)
[2022-08-05] MEDS: METFORMIN HCL 500 MG TABLET PO SCH ×2 (08:00→17:38)
[2022-08-05 08:12] VITALS: BP 138/87
[2022-08-05] MEDS: LINAGLIPTIN 5 MG TABLET PO SCH (09:00)
[2022-08-05] MEDS: DOCUSATE SODIUM 100 MG/10 ML LIQUID UDC PO SCH ×2 (09:00→17:00)
[2022-08-05] MEDS: AMLODIPINE 5 MG TABLET PO SCH (09:00)
[2022-08-05] MEDS: DIVALPROEX SPRINKLE 125 MG CAP.SPRINK PO SCH ×2 (09:00→21:17)
[2022-08-05] MEDS: MEMANTINE HCL 10 MG TABLET PO SCH ×2 (09:00→20:31)
[2022-08-05] MEDS: QUETIAPINE FUMARATE 25 MG TABLET PO SCH ×3 (09:00→17:00)
[2022-08-05] MEDS: ENOXAPARIN SODIUM 80 MG/0.8 ML DISP.SYRIN SQ SCH ×2 (10:15→21:20)
[2022-08-05] MEDS: ACETAMINOPHEN 325 MG TABLET PO PRN (14:00)
--- NOTE | 2022-08-05 14:44 | NUR ---
Patient is confused, forgetful, disoriented, compliant with medications, talkative. Patient requires more than minimal assistance with ADL, ambulates with assistance of 2 people, incontinent. Patient is A/O X 1 -2 to person. Blood glucose is 140, insulin not given because patient ate 25% of his food. Patient is encourage to verbalize concerns. Fall and safety precautions implemented.
[2022-08-05 16:20] VITALS: BP 99/60
--- NOTE | 2022-08-05 17:38 | NUR ---
Patient was not given 09:00 and 17:00 for being sleepy and lethargic. Patient blood glucose is 137. insulin not given for the same reasons. Addendum: 08/05/22 at 1744 by HUMERA LIVINGSTON RN schedule medications
[2022-08-05 20:14] VITALS: BP 123/74
[2022-08-05] MEDS: DONEPEZIL 5 MG TABLET PO SCH (20:30)
[2022-08-05] MEDS: QUETIAPINE FUMARATE 100 MG TABLET PO SCH (20:31)
[2022-08-05] MEDS: ATORVASTATIN 10 MG TABLET PO SCH (20:31)
[2022-08-05] MEDS: LORAZEPAM 1 MG TABLET PO PRN (20:31)
[2022-08-05] MEDS: INSULIN REGULAR, HUMAN 300 UNIT/3 ML VIAL SQ PRN (20:39)
[2022-08-05] MEDS: INSULIN REGULAR, HUMAN 300 UNITS/3 ML VIAL SQ PRN (21:17)
--- NOTE | 2022-08-06 01:44 | NUR ---
Patient still showing s/s of VH and AH this shift. Patient is compliant with care if providing extra time and care with patient. Pt received his Lovenox IM injection and sliding scale coverage this shift without pt refusal. Will continue to monitor.
[2022-08-06] MEDS: BLOOD SUGAR DIAGNOSTIC 1 EACH STRIP VI SCH ×4 (07:22→21:00)
[2022-08-06] MEDS: METFORMIN HCL 500 MG TABLET PO SCH ×2 (08:00→16:47)
[2022-08-06] MEDS: GLUCERNA SHAKE 237 ML CAN PO SCH ×2 (08:00→16:46)
[2022-08-06 08:06] LABS: HEMATOCRIT 39.2 % (36.7-47.1); MEAN CORPUSCULAR HEMOGLOBIN 30.5 uug (23.8-33.4); MEAN CORPUSCULAR VOLUME 90.7 fL (73.0-96.2); PLATELET COUNT (AUTO) 210 K/uL (152-348)
[2022-08-06 08:22] VITALS: BP 138/83
[2022-08-06] MEDS: DIVALPROEX SPRINKLE 125 MG CAP.SPRINK PO SCH ×2 (10:27→20:43)
[2022-08-06] MEDS: DOCUSATE SODIUM 100 MG/10 ML LIQUID UDC PO SCH ×2 (10:27→16:46)
[2022-08-06] MEDS: LORAZEPAM 0.5 MG TABLET PO PRN ×3 (10:28→20:43)
[2022-08-06] MEDS: LINAGLIPTIN 5 MG TABLET PO SCH (10:28)
[2022-08-06] MEDS: AMLODIPINE 5 MG TABLET PO SCH (10:29)
[2022-08-06] MEDS: MEMANTINE HCL 10 MG TABLET PO SCH ×2 (10:29→21:34)
[2022-08-06] MEDS: ENOXAPARIN SODIUM 80 MG/0.8 ML DISP.SYRIN SQ SCH ×2 (10:33→21:00)
[2022-08-06] MEDS: QUETIAPINE FUMARATE 25 MG TABLET PO SCH ×3 (10:59→16:46)
[2022-08-06 16:47] VITALS: BP 122/83
--- NOTE | 2022-08-06 17:55 | NUR ---
PT WAS HAVING AGITATION GAVE PT 0.5MG OF ATIVAN PO ALONG WITH OTHER SCHEDULED MEDICATION AND HE REFUSED EVENING BLOOD SUGAR. BUT NO SIGNS OF DIABETIC REACTION NOTED. PT HAD NO ADVERSE REACTION FROM MEDICATION PT IS SITTING IN GERICHAIR AT NURSING STATION.
--- NOTE | 2022-08-06 18:12 | NUR ---
PT IS CALMER SITTING AND TALKING TO HIS PEERS. WILL ENDORSE TO EVENING NURSE
[2022-08-06 20:28] VITALS: BP 111/67
[2022-08-06] MEDS: ATORVASTATIN 10 MG TABLET PO SCH (20:42)
[2022-08-06] MEDS: DONEPEZIL 5 MG TABLET PO SCH (20:43)
[2022-08-06] MEDS: QUETIAPINE FUMARATE 100 MG TABLET PO SCH (21:34)
--- NOTE | 2022-08-06 23:06 | NUR ---
Pt was in a labile mood early in this shift, sitting in a gerichair, yelling on flight of ideas statements, aggressively banging on its table, experiencing AH and VH. Gave scheduled 2100 medications along with Ativan PO PRN to help calm and stabilize his mood. Medications were effective. Transferred pt to his bed with some irritation noted but overall complied with care. Safety measures enforced. Will continue to monitor.
[2022-08-07] MEDS: BLOOD SUGAR DIAGNOSTIC 1 EACH STRIP VI SCH ×4 (06:33→20:14)
[2022-08-07 08:07] VITALS: BP 135/70
[2022-08-07] MEDS: GLUCERNA SHAKE 237 ML CAN PO SCH ×2 (08:12→17:46)
[2022-08-07] MEDS: METFORMIN HCL 500 MG TABLET PO SCH ×2 (08:13→17:27)
[2022-08-07] MEDS: DIVALPROEX SPRINKLE 125 MG CAP.SPRINK PO SCH ×2 (08:13→20:14)
[2022-08-07] MEDS: DOCUSATE SODIUM 100 MG/10 ML LIQUID UDC PO SCH ×2 (08:14→17:46)
[2022-08-07] MEDS: QUETIAPINE FUMARATE 25 MG TABLET PO SCH ×3 (08:14→17:26)
[2022-08-07] MEDS: AMLODIPINE 5 MG TABLET PO SCH (08:14)
[2022-08-07] MEDS: MEMANTINE HCL 10 MG TABLET PO SCH ×2 (08:14→20:14)
[2022-08-07] MEDS: LINAGLIPTIN 5 MG TABLET PO SCH (08:14)
[2022-08-07] MEDS: ENOXAPARIN SODIUM 80 MG/0.8 ML DISP.SYRIN SQ SCH (08:16)
--- NOTE | 2022-08-07 10:09 | NUR ---
Patient hearing today for 14 day hold, per hearing continue 5250 for GD.
[2022-08-07] MEDS: INSULIN REGULAR, HUMAN 300 UNIT/3 ML VIAL SQ PRN ×3 (12:29→17:33)
[2022-08-07] MEDS: APIXABAN 5 MG TABLET PO SCH ×2 (12:49→20:14)
[2022-08-07] MEDS: LORAZEPAM 0.5 MG TABLET PO PRN (14:09)
--- NOTE | 2022-08-07 14:23 | NUR ---
SW Family Contact: SW spoke with pt's regarding pt's treatment and status. SW will contact pt's son, Storm for further [phone] for further discussion.
[2022-08-07 16:08] VITALS: BP 111/54
[2022-08-07] MEDS: ACETAMINOPHEN 325 MG TABLET PO PRN (17:27)
--- NOTE | 2022-08-07 18:04 | NUR ---
Received Pt in room sleeping. pt slept until noon,was awake for lunch. After lung we transfer pt to the geriatric chair. Pt became restless, anxious, banging on the tray table and disrobing.Pt is confused, combative and uncooperative with nursing nursing care. Pt kept sliding down on the chair, yelling, striking out at staff trying to punch and bite.Pt was given a PRN for agitation. Pt is compliant with medication but needs prompting. Safety precautions put in place. Continue to monitor for behavior escalation and safety. Continue with care plan.
[2022-08-07 19:54] VITALS: BP 152/61
[2022-08-07] MEDS: ATORVASTATIN 10 MG TABLET PO SCH (20:14)
[2022-08-07] MEDS: DONEPEZIL 5 MG TABLET PO SCH (20:14)
[2022-08-07] MEDS: QUETIAPINE FUMARATE 100 MG TABLET PO SCH (20:14)
--- NOTE | 2022-08-07 20:57 | NUR ---
GPS: Pt.refused all bedtime meds.earlier despite explanation of importance. Refused bedtime snacks also and spitted at staff. Remains unpredictable,aggressive and combative when approached by staff. Safe environment provided. Re-directed prn. Reality re-orientation provided.
[2022-08-07] MEDS: REMEDY ESSENTIAL ZINC PASTE 113 GM TOP PRN (23:22)
[2022-08-08] MEDS: REMEDY ESSENTIAL ZINC PASTE 113 GM TOP PRN (06:08)
[2022-08-08] MEDS: BLOOD SUGAR DIAGNOSTIC 1 EACH STRIP VI SCH ×4 (06:19→20:44)
[2022-08-08 08:15] VITALS: BP 138/74
[2022-08-08] MEDS: QUETIAPINE FUMARATE 25 MG TABLET PO SCH (08:44)
[2022-08-08] MEDS: METFORMIN HCL 500 MG TABLET PO SCH ×2 (08:44→17:44)
[2022-08-08] MEDS: LINAGLIPTIN 5 MG TABLET PO SCH (08:44)
[2022-08-08] MEDS: DIVALPROEX SPRINKLE 125 MG CAP.SPRINK PO SCH (08:44)
[2022-08-08] MEDS: AMLODIPINE 5 MG TABLET PO SCH (08:45)
[2022-08-08] MEDS: MEMANTINE HCL 10 MG TABLET PO SCH ×2 (08:45→20:04)
[2022-08-08] MEDS: GLUCERNA SHAKE 237 ML CAN PO SCH ×2 (08:47→17:44)
[2022-08-08] MEDS: APIXABAN 5 MG TABLET PO SCH ×2 (08:47→20:08)
[2022-08-08] MEDS: DOCUSATE SODIUM 100 MG/10 ML LIQUID UDC PO SCH ×2 (08:48→17:45)
--- NOTE | 2022-08-08 12:27 | NUR ---
Patient blood glucose is 180 but patient refuses to eat lunch and Regular Insulin was not given .No distress noted. Continue to monitor for safety.
[2022-08-08] MEDS: LITHIUM CARBONATE 150 MG CAPSULE PO SCH ×3 (12:56→17:44)
[2022-08-08 13:06] LABS: BETA-2-GLYCOPROTEIN IGG/M/A 12 (0-25); LUPUS INTERPRETATION Comment: (.)
[2022-08-08] MEDS: INSULIN REGULAR, HUMAN 300 UNITS/3 ML VIAL SQ PRN ×2 (13:39→20:49)
[2022-08-08 14:07] LABS: IMMUNOGLOBULIN M, SERUM 101 mg/dL (15-143)
--- NOTE | 2022-08-08 14:28 | NUR ---
BHAVIN Family Contact: BHAVIN spoke with pt's regarding pt's treatment and status. BHAVIN spoke with pt's son, Storm [phone] Hurtado's medication changes for pt's treatment. Storm and his mom are grateful for the improvements. BHAVIN will continue to update the family.
[2022-08-08 16:00] VITALS: BP 105/68
[2022-08-08] MEDS: OLANZAPINE ZYDIS 5 MG TAB.RAPDIS PO SCH (17:45)
[2022-08-08] MEDS: INSULIN REGULAR, HUMAN 300 UNIT/3 ML VIAL SQ PRN (17:57)
--- NOTE | 2022-08-08 18:18 | NUR ---
Received Pt in room sleeping. pt slept most of the day. Pt was kicking, punching,scratching and trying to bite at staff when providing care .Pt is confused, combative and uncooperative with nursing nursing care.Pt took his morning and evening medication but refused his afternoon medications. Safety precautions put in place. Continue to monitor for behavior escalation and safety. Continue with care plan.
[2022-08-08] MEDS: ATORVASTATIN 10 MG TABLET PO SCH (20:04)
[2022-08-08] MEDS: DONEPEZIL 5 MG TABLET PO SCH (20:04)
[2022-08-08] MEDS: QUETIAPINE FUMARATE 100 MG TABLET PO SCH (20:04)
[2022-08-08] MEDS: LORAZEPAM 0.5 MG TABLET PO PRN (20:53)
--- NOTE | 2022-08-08 20:55 | NUR ---
patient is agitated,getting out of mine chair. ativan 0.5 mg po prn given for agitation.
--- NOTE | 2022-08-08 21:55 | NUR ---
patient is calm now,prn effective.
[2022-08-08 22:24] VITALS: BP 131/76
[2022-08-08] MEDS: TEMAZEPAM 7.5 MG CAPSULE PO PRN (22:24)
[2022-08-09] MEDS: BLOOD SUGAR DIAGNOSTIC 1 EACH STRIP VI SCH ×4 (06:16→20:27)
--- NOTE | 2022-08-09 06:20 | NUR ---
GPS: Remain cooperative with meds.uncooperative with adl's. slept 7 hrs after sleeping meds given. resting in bed comfortably.
[2022-08-09 08:00] VITALS: BP 155/80
[2022-08-09] MEDS: GLUCERNA SHAKE 237 ML CAN PO SCH ×2 (08:00→16:53)
[2022-08-09] MEDS: MEMANTINE HCL 10 MG TABLET PO SCH ×2 (09:22→20:50)
[2022-08-09] MEDS: LINAGLIPTIN 5 MG TABLET PO SCH (09:22)
[2022-08-09] MEDS: METFORMIN HCL 500 MG TABLET PO SCH ×2 (09:22→17:01)
[2022-08-09] MEDS: OLANZAPINE ZYDIS 5 MG TAB.RAPDIS PO SCH ×2 (09:23→16:52)
[2022-08-09] MEDS: ACETAMINOPHEN 325 MG TABLET PO PRN ×2 (09:23→20:50)
[2022-08-09] MEDS: LITHIUM CARBONATE 150 MG CAPSULE PO SCH ×3 (09:23→16:52)
[2022-08-09] MEDS: DOCUSATE SODIUM 100 MG/10 ML LIQUID UDC PO SCH ×2 (09:24→16:52)
[2022-08-09] MEDS: AMLODIPINE 5 MG TABLET PO SCH (09:36)
[2022-08-09] MEDS: APIXABAN 5 MG TABLET PO SCH ×2 (09:37→20:51)
[2022-08-09] MEDS: LORAZEPAM 0.5 MG TABLET PO PRN ×2 (10:14→20:49)
--- NOTE | 2022-08-09 10:17 | NUR ---
Gps/Corporate Safety Coordinator- Found sitting at the edge of bed, alarm on, but did not go off. Incontinent of urine, good hygiene render Assisted oob to his mine-chair assisted with his puddings and offered fluids, spilled his breakfast. kept patient by the Nurses station, monitored closely for safety. Tylenol 650 mg administered crushed wit pudding in prep. to attempt removing his sugey at the back of his head. remains confused, labile mood.
--- NOTE | 2022-08-09 12:18 | NUR ---
BHAVIN Family Contact: BHAVIN with pt's son, Storm [phone] Hurtado's medication changes for pt's treatment. Storm is aware that pt will discharge to a [facility] facility recommended by Dr. Hurtado to continue care upon discharge and Storm and his mother are agreeable. SW will continue to update family with discharge plans as needed.
[2022-08-09] MEDS: INSULIN REGULAR, HUMAN 300 UNIT/3 ML VIAL SQ PRN (12:22)
--- NOTE | 2022-08-09 12:52 | NUR ---
Gps/Diving Instructor- Son came in to visit, was able to assist patient in his shaving , changed his shirt. Assisted with his lunch, interacting with patient, Patient kept up in his mine-chair for safety.
[2022-08-09 15:00] VITALS: BP 131/73
[2022-08-09] MEDS: ATORVASTATIN 10 MG TABLET PO SCH (20:49)
[2022-08-09] MEDS: DONEPEZIL 5 MG TABLET PO SCH (20:49)
[2022-08-09] MEDS: QUETIAPINE FUMARATE 100 MG TABLET PO SCH (20:49)
[2022-08-09 21:02] VITALS: BP 115/67
[2022-08-09] MEDS: TEMAZEPAM 7.5 MG CAPSULE PO PRN (22:06)
[2022-08-10] MEDS: INSULIN REGULAR, HUMAN 300 UNITS/3 ML VIAL SQ PRN
--- NOTE | 2022-08-10 05:17 | NUR ---
Received Pt in hallway sitting in geriatric chair, restless,anxious, banging on the tray table, sliding down the chair.Pt is confused, disoriented, combative and uncooperative with nursing care.Pt was having VA/HI talking to him self. Pt is compliant with medication but needs prompting. Pt took sleeping PRN and slept for 7 hr and 15 min..Diaper was change and Pt was reposition. Safety precautions put in place, bed alarm on, no distress noted. Continue to monitor for safety, continue with treatment plan.
[2022-08-10] MEDS: BLOOD SUGAR DIAGNOSTIC 1 EACH STRIP VI SCH ×4 (06:32→21:13)
[2022-08-10 08:00] VITALS: BP 146/85
[2022-08-10] MEDS: METFORMIN HCL 500 MG TABLET PO SCH ×2 (08:00→18:12)
[2022-08-10] MEDS: DOCUSATE SODIUM 100 MG/10 ML LIQUID UDC PO SCH ×2 (09:00→17:00)
--- NOTE | 2022-08-10 12:00 | NUR ---
Gps/Applied Psychology Chair- Unable to administer routine am meds, asleep, , difficulty waking up , no distress, , will attempt to re-offer at a later time when fully awake
[2022-08-10] MEDS: LITHIUM CARBONATE 150 MG CAPSULE PO SCH ×3 (13:00→17:53)
--- NOTE | 2022-08-10 13:50 | NUR ---
BHAVIN Family Contact: BHAVIN contacted pt's son, Storm [phone] and left a voicemail for a call back. BHAVIN informed Storm that this SW will back back in the office on Saturday if not able to connect with Storm today.
--- NOTE | 2022-08-10 14:00 | NUR ---
Gps/Career Services Director- Fully awake, incontinent of urine provided good hygiene. OOB to his mine-chair P..T. assisting ambulated with FWW, had been cooperative with the staff.fluids offered, routine meds. administered crushed w/ some pudding .
[2022-08-10] MEDS: GLUCERNA SHAKE 237 ML CAN PO SCH ×2 (14:07→17:54)
[2022-08-10] MEDS: OLANZAPINE ZYDIS 5 MG TAB.RAPDIS PO SCH ×2 (14:10→17:54)
[2022-08-10] MEDS: AMLODIPINE 5 MG TABLET PO SCH (14:11)
[2022-08-10] MEDS: MEMANTINE HCL 10 MG TABLET PO SCH ×2 (14:12→20:22)
[2022-08-10] MEDS: APIXABAN 5 MG TABLET PO SCH ×2 (14:14→20:24)
[2022-08-10] MEDS: LINAGLIPTIN 5 MG TABLET PO SCH (14:15)
[2022-08-10 15:19] VITALS: BP 109/71
[2022-08-10] MEDS: INSULIN REGULAR, HUMAN 300 UNIT/3 ML VIAL SQ PRN (16:35)
[2022-08-10] MEDS: DONEPEZIL 5 MG TABLET PO SCH (20:21)
[2022-08-10] MEDS: ATORVASTATIN 10 MG TABLET PO SCH (20:22)
[2022-08-10] MEDS: QUETIAPINE FUMARATE 100 MG TABLET PO SCH (20:22)
[2022-08-10 20:43] VITALS: BP 91/61
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
[2022-08-11] MEDS: LORAZEPAM 0.5 MG TABLET PO PRN ×2 (06:25→21:20)
[2022-08-11] MEDS: ACETAMINOPHEN 325 MG TABLET PO PRN (06:25)
--- NOTE | 2022-08-11 06:31 | NUR ---
Pt is on geriatric chair bangin his hand on the tray table,sliding down form the chair and punching staff when reposition him on the chair. PRN given for agitation. Reassurance provided. continue to monitor for behavioral escalation , continue to monitor for safety.
[2022-08-11] MEDS: BLOOD SUGAR DIAGNOSTIC 1 EACH STRIP VI SCH ×4 (06:43→21:37)
[2022-08-11 07:46] VITALS: BP 120/68
[2022-08-11] MEDS: METFORMIN HCL 500 MG TABLET PO SCH ×2 (08:14→17:08)
[2022-08-11] MEDS: MEMANTINE HCL 10 MG TABLET PO SCH ×2 (08:14→21:21)
[2022-08-11] MEDS: LITHIUM CARBONATE 150 MG CAPSULE PO SCH ×3 (08:14→17:04)
[2022-08-11] MEDS: OLANZAPINE ZYDIS 5 MG TAB.RAPDIS PO SCH ×2 (08:14→17:04)
[2022-08-11] MEDS: LINAGLIPTIN 5 MG TABLET PO SCH ×2 (08:14→08:35)
[2022-08-11] MEDS: APIXABAN 5 MG TABLET PO SCH ×2 (08:33→21:31)
[2022-08-11] MEDS: AMLODIPINE 5 MG TABLET PO SCH (08:35)
[2022-08-11] MEDS: DOCUSATE SODIUM 100 MG/10 ML LIQUID UDC PO SCH ×2 (08:36→17:05)
[2022-08-11] MEDS: GLUCERNA SHAKE 237 ML CAN PO SCH ×2 (08:37→17:06)
--- NOTE | 2022-08-11 11:06 | NUR ---
Gps/Microfilm Technician-Needed assist with his meals, fluids offered, encouraged. Kept up on his mine-chair for safety . Routine meds. administered crushed with apple sauce. Stayed in the activity room listening to old music , interacting when engaged, speech incoherent, confused.
[2022-08-11] MEDS: INSULIN REGULAR, HUMAN 300 UNIT/3 ML VIAL SQ PRN (12:04)
[2022-08-11 17:31] VITALS: BP 134/98
[2022-08-11 19:59] VITALS: BP 136/96
[2022-08-11] MEDS: DONEPEZIL 5 MG TABLET PO SCH (21:20)
[2022-08-11] MEDS: ATORVASTATIN 10 MG TABLET PO SCH (21:21)
[2022-08-11] MEDS: QUETIAPINE FUMARATE 100 MG TABLET PO SCH (21:21)
[2022-08-11] MEDS: INSULIN REGULAR, HUMAN 300 UNITS/3 ML VIAL SQ PRN (21:33)
--- NOTE | 2022-08-12 04:38 | NUR ---
Received pt on gerichair in [facility]. AOx1 (name), pt is mainly confused and disoriented. Pt was compliant with this nurse providing care and medications. After falling asleep in the recreational room (tv room), this nurse brought pt to his bed where he fell asleep soundly throughout the rest of the shift. Safety measures in place. Will continue to monitor.
[2022-08-12] MEDS: BLOOD SUGAR DIAGNOSTIC 1 EACH STRIP VI SCH ×4 (06:42→20:42)
[2022-08-12 07:00] LABS: HEMATOCRIT 39.3 % (36.7-47.1); MEAN CORPUSCULAR HEMOGLOBIN 30.5 uug (23.8-33.4); MEAN CORPUSCULAR VOLUME 92.1 fL (73.0-96.2); PLATELET COUNT (AUTO) 285 K/uL (152-348)
[2022-08-12 07:53] VITALS: BP 144/65
[2022-08-12] MEDS: GLUCERNA SHAKE 237 ML CAN PO SCH ×2 (08:00→16:24)
[2022-08-12] MEDS: METFORMIN HCL 500 MG TABLET PO SCH ×2 (08:00→18:00)
[2022-08-12] MEDS: OLANZAPINE ZYDIS 5 MG TAB.RAPDIS PO SCH ×2 (09:00→16:23)
[2022-08-12] MEDS: MEMANTINE HCL 10 MG TABLET PO SCH ×2 (09:00→20:33)
[2022-08-12] MEDS: LITHIUM CARBONATE 150 MG CAPSULE PO SCH ×3 (09:00→16:23)
[2022-08-12] MEDS: LINAGLIPTIN 5 MG TABLET PO SCH (09:00)
[2022-08-12] MEDS: DOCUSATE SODIUM 100 MG/10 ML LIQUID UDC PO SCH ×2 (09:00→16:22)
[2022-08-12] MEDS: AMLODIPINE 5 MG TABLET PO SCH (09:00)
--- NOTE | 2022-08-12 09:56 | NUR ---
Gps/Tile Setter- Asleep, difficulty waking patient up ,no signs of any distress, unable to administer routine am meds. will attempt to reoffer at a later time when patient fully awake, and able to follow simple directions. Bed alarm on, monotor safety.
--- NOTE | 2022-08-12 12:02 | NUR ---
Gps/Test Eng- Attempted tp dandy up patient couple of times , responds to his name and to tactile stimuli, lethargic will not stay wake enough to be fed . Will continue to monitor alertness
--- NOTE | 2022-08-12 12:12 | NUR ---
Nursing -Unable to administer routine am medications, tries couple of times, regimen, patient too sedated , vital signs stable, continue to monitor no signs of any distress. Kept HOB elevated , repositioned
--- NOTE | 2022-08-12 14:33 | NUR ---
Nursing- Noemi DECK SPECIALIST was in to see patient was informed/aware WBC > 12.4 today
[2022-08-12] MEDS: APIXABAN 5 MG TABLET PO SCH ×2 (16:19→20:34)
[2022-08-12 16:25] VITALS: BP 129/67
[2022-08-12 19:48] VITALS: BP 115/68
[2022-08-12] MEDS: QUETIAPINE FUMARATE 100 MG TABLET PO SCH (20:33)
[2022-08-12] MEDS: DONEPEZIL 5 MG TABLET PO SCH (20:33)
[2022-08-12] MEDS: ATORVASTATIN 10 MG TABLET PO SCH (20:33)
[2022-08-12] MEDS: LORAZEPAM 0.5 MG TABLET PO PRN (20:37)
[2022-08-12] MEDS: ACETAMINOPHEN 325 MG TABLET PO PRN (20:38)
[2022-08-12] MEDS: INSULIN REGULAR, HUMAN 300 UNIT/3 ML VIAL SQ PRN (21:23)
[2022-08-12] MEDS: INSULIN REGULAR, HUMAN 300 UNITS/3 ML VIAL SQ PRN (21:27)
[2022-08-12] MEDS: TEMAZEPAM 7.5 MG CAPSULE PO PRN (22:58)
--- NOTE | 2022-08-13 04:48 | NUR ---
Pt is awake in hallway sitting in geriatric chair. Pt is confused, anxious, restless, Pt is yelling, sliding down the chair, banging on the tray table.Pt was taken to the dinning room to watch TV to help calm his self. Reassurance Provided.Continue to monitor for safety and behavioral escalation.
[2022-08-13] MEDS: BLOOD SUGAR DIAGNOSTIC 1 EACH STRIP VI SCH ×4 (07:42→20:25)
[2022-08-13] MEDS: METFORMIN HCL 500 MG TABLET PO SCH ×2 (08:00→18:00)
[2022-08-13] MEDS: GLUCERNA SHAKE 237 ML CAN PO SCH ×2 (08:00→16:18)
[2022-08-13 08:13] VITALS: BP 116/63
[2022-08-13] MEDS ORDERED: diphenhydrAMINE 25 MG/10 ML UDC PO PRN (08:15)
[2022-08-13] MEDS: OLANZAPINE ZYDIS 5 MG TAB.RAPDIS PO SCH ×3 (08:15→16:09)
[2022-08-13] MEDS: LINAGLIPTIN 5 MG TABLET PO SCH (09:00)
[2022-08-13] MEDS: AMLODIPINE 5 MG TABLET PO SCH (09:00)
[2022-08-13] MEDS: LITHIUM CARBONATE 150 MG CAPSULE PO SCH ×3 (09:00→16:09)
[2022-08-13] MEDS: DOCUSATE SODIUM 100 MG/10 ML LIQUID UDC PO SCH ×2 (09:00→16:17)
[2022-08-13] MEDS: APIXABAN 5 MG TABLET PO SCH ×2 (09:00→20:25)
[2022-08-13] MEDS: MEMANTINE HCL 10 MG TABLET PO SCH ×3 (09:00→20:25)
[2022-08-13 10:38] LABS: HEMATOCRIT 40.2 % (36.7-47.1); MEAN CORPUSCULAR HEMOGLOBIN 30.5 uug (23.8-33.4); MEAN CORPUSCULAR VOLUME 92.5 fL (73.0-96.2); PLATELET COUNT (AUTO) 308 K/uL (152-348)
--- NOTE | 2022-08-13 12:22 | NUR ---
BHAVIN Family Contact: SW spoke to pt's son, Storm [phone] in person regarding pt's updates and discharge plan. Storm is aware of Dr. Hurtado's treatment changes and is agreeable. Storm is appreciative of everyone's help and understand that pt is not yet stable for discharge to a halfway facility where Dr. Hurtado will follow care.
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
[2022-08-13] MEDS: REMEDY ESSENTIAL ZINC PASTE 113 GM TOP PRN ×2 (15:01→21:46)
[2022-08-13 16:25] VITALS: BP 105/60
[2022-08-13] MEDS: DONEPEZIL 5 MG TABLET PO SCH (20:24)
[2022-08-13] MEDS: MELATONIN 3 MG TABLET PO SCH (20:25)
[2022-08-13] MEDS: TRAZODONE 50 MG TABLET PO SCH (20:25)
[2022-08-13] MEDS: ATORVASTATIN 10 MG TABLET PO SCH (20:25)
[2022-08-13] MEDS: LORAZEPAM 0.5 MG TABLET PO PRN (20:45)
--- NOTE | 2022-08-13 20:52 | NUR ---
GPS: Pt.is anxious,restless,confused,disoriented and disorganized. Refused all bedtime meds. when offered to him several times. Pt. spitted out his meds.when given by staff a bit earlier. Constantly talking non-sensical. Banging on the table at times. Combative,uncooperative during care. Re-directed constantly. Snacks were offered but also spitted out by pt. Safe environment provided. Will continue to monitor.
[2022-08-13 20:54] VITALS: BP 112/68
[2022-08-14] MEDS: BLOOD SUGAR DIAGNOSTIC 1 EACH STRIP VI SCH ×4 (06:31→20:40)
[2022-08-14 08:00] VITALS: BP 124/46
[2022-08-14] MEDS: METFORMIN HCL 500 MG TABLET PO SCH ×2 (08:00→17:00)
[2022-08-14] MEDS: GLUCERNA SHAKE 237 ML CAN PO SCH ×2 (08:35→16:35)
[2022-08-14] MEDS: DOCUSATE SODIUM 100 MG/10 ML LIQUID UDC PO SCH ×2 (08:36→16:36)
[2022-08-14] MEDS: LINAGLIPTIN 5 MG TABLET PO SCH (08:36)
[2022-08-14] MEDS: REMEDY ESSENTIAL ZINC PASTE 113 GM TOP PRN (08:37)
[2022-08-14] MEDS: MEMANTINE HCL 10 MG TABLET PO SCH ×2 (09:12→20:33)
[2022-08-14] MEDS: AMLODIPINE 5 MG TABLET PO SCH (09:12)
[2022-08-14] MEDS: LITHIUM CARBONATE 150 MG CAPSULE PO SCH ×3 (09:12→16:35)
[2022-08-14] MEDS: OLANZAPINE ZYDIS 5 MG TAB.RAPDIS PO SCH ×3 (09:12→20:33)
[2022-08-14] MEDS: APIXABAN 5 MG TABLET PO SCH ×2 (09:13→20:40)
--- NOTE | 2022-08-14 15:26 | NUR ---
GPS: Nursing Notes: Destructive Behavior To Others: Patient is awake and responding to his name, impaired judgment, poor insight, gets easily irritable when redirected, belligerent behavior when changing his wet diaper, redirected and reoriented during shift, unable to formulate a viable plan for self care, needs assistance with ADL's, continue to monitor for safety, continue with treatment plan.
[2022-08-14 16:23] VITALS: BP 128/56
[2022-08-14] MEDS: DONEPEZIL 5 MG TABLET PO SCH (20:33)
[2022-08-14] MEDS: TRAZODONE 50 MG TABLET PO SCH (20:33)
[2022-08-14] MEDS: ATORVASTATIN 10 MG TABLET PO SCH (20:33)
[2022-08-14] MEDS: MELATONIN 3 MG TABLET PO SCH (20:33)
[2022-08-14 21:05] VITALS: BP 112/54
--- NOTE | 2022-08-14 21:39 | NUR ---
GPS: Remains confused,disoriented and non-sensical. Less anxious and restless so far tonight. Poor insight and has impaired judgment. Took bedtime meds. with little persuasion from staff. Refused accucheck despite explanation of importance. No s/s of hypo/hyperglycemia noted. Fall precautions observed. Needs attended.
[2022-08-15] MEDS: BLOOD SUGAR DIAGNOSTIC 1 EACH STRIP VI SCH ×4 (06:12→21:02)
[2022-08-15] MEDS: REMEDY ESSENTIAL ZINC PASTE 113 GM TOP PRN (06:38)
--- NOTE | 2022-08-15 06:38 | NUR ---
GPS: Pt.slept 8 hrs.last night. Less combative during incontinence care earlier. Refused blood sugar check despite explanation of importance and numerous attempts by staff. Remains confused,disoriented and non-sensical. Safe environment provided. Denies pain. Will continue to monitor.
--- NOTE | 2022-08-15 07:20 | NUR ---
GPS: Patient sleeping in bed at this time, no S/S of discomforts at this time, will continue to monitor.
[2022-08-15 07:59] LABS: HEMATOCRIT 39.4 % (36.7-47.1); MEAN CORPUSCULAR HEMOGLOBIN 30.6 uug (23.8-33.4); MEAN CORPUSCULAR VOLUME 92.2 fL (73.0-96.2); PLATELET COUNT (AUTO) 318 K/uL (152-348)
[2022-08-15] MEDS: METFORMIN HCL 500 MG TABLET PO SCH ×2 (08:00→18:00)
[2022-08-15] MEDS: GLUCERNA SHAKE 237 ML CAN PO SCH ×2 (08:00→17:20)
[2022-08-15 08:17] LABS: CREATININE 0.9 mg/dL (0.6-1.3); MAGNESIUM 1.7 mg/dL (1.8-2.4); PHOSPHOROUS 3.5 mg/dL (2.5-4.9); POTASSIUM 3.9 mmol/L (3.5-5.1)
[2022-08-15 08:27] VITALS: BP 145/70
[2022-08-15] MEDS ORDERED: LITHIUM CARBONATE 150 MG CAPSULE PO SCH (08:30)
[2022-08-15] MEDS: AMLODIPINE 5 MG TABLET PO SCH (09:00)
[2022-08-15] MEDS: MEMANTINE HCL 10 MG TABLET PO SCH ×2 (09:00→20:39)
[2022-08-15] MEDS: LINAGLIPTIN 5 MG TABLET PO SCH (09:00)
[2022-08-15] MEDS: LITHIUM CARBONATE 300 MG CAPSULE PO SCH ×2 (09:00→16:09)
[2022-08-15] MEDS: DOCUSATE SODIUM 100 MG/10 ML LIQUID UDC PO SCH ×2 (09:00→16:10)
[2022-08-15] MEDS: APIXABAN 5 MG TABLET PO SCH ×2 (09:00→21:56)
--- NOTE | 2022-08-15 09:00 | NUR ---
GPS: Patient lying in bed sleeping, woke up while providing, harmeet-care, patient is following directions with eyes close, and with out fighting staff. Will continue to monitor.
[2022-08-15 09:56] VITALS: BP 123/67
[2022-08-15] MEDS ORDERED: MAGNESIUM OXIDE 400 MG TABLET PO ONE (10:30)
--- NOTE | 2022-08-15 12:00 | NUR ---
GPS: Physical therapy working with patient at this time, patient is following directions, was able to walked with PT and using FWW down the hallway.
[2022-08-15] MEDS: OLANZAPINE ZYDIS 5 MG TAB.RAPDIS PO SCH ×3 (13:16→20:39)
--- NOTE | 2022-08-15 14:57 | NUR ---
BHAVIN Family Contact: BHAVIN spoke to pt's son, Storm [phone] regarding pt's referral options to located at [address] [place] [id number] ([phone]) and [address] [address] ([phone]) per Dr. Hurtado. Storm is agreeable. BHAVIN will refer and Cynthia DELCID will follow-up with Storm. BHAVIN provided Cynthia's information for Storm to contact while covering for this SW.
[2022-08-15 15:51] VITALS: BP 119/66
--- NOTE | 2022-08-15 16:19 | NUR ---
SW Family Contact: SW spoke to pt's son, Storm [phone] regarding pt's referral to [facility] located at [address] [place] [address] ([phone]) and that the patient was clinically accepted.
--- NOTE | 2022-08-15 18:09 | NUR ---
GPS: Patient with poor appetitive, daughter here trying to give patient dinner, brought outside food, but patient did not eat much.
[2022-08-15 20:00] VITALS: BP 131/79
[2022-08-15] MEDS: MELATONIN 3 MG TABLET PO SCH (20:39)
[2022-08-15] MEDS: TRAZODONE 50 MG TABLET PO SCH (20:39)
[2022-08-15] MEDS: DONEPEZIL 5 MG TABLET PO SCH (20:40)
[2022-08-15] MEDS: ATORVASTATIN 10 MG TABLET PO SCH (20:40)
--- NOTE | 2022-08-15 20:40 | NUR ---
Received patient in mine chair, patient took all po meds, and accuheck done. Patient noted with restlessness, took to the toilet for bladder elimination, diaper was changed, and assisted back to mine chair. Patient calm and cooperative with meds and care at this time.
[2022-08-15] MEDS ORDERED: OLANZAPINE ZYDIS 5 MG TAB.RAPDIS PO SCH (21:00)
[2022-08-15] MEDS: INSULIN REGULAR, HUMAN 300 UNITS/3 ML VIAL SQ PRN (21:58)
[2022-08-16] MEDS: BLOOD SUGAR DIAGNOSTIC 1 EACH STRIP VI SCH ×4 (06:23→20:41)
--- NOTE | 2022-08-16 06:30 | NUR ---
Patient asleep, but arousable, no s/s of pain at this time, rendered total assist with adl's. Patient slept most of the night, kept clean dry and comfortable. cont to monitor.
[2022-08-16 08:00] VITALS: BP 135/63
[2022-08-16] MEDS: DOCUSATE SODIUM 100 MG/10 ML LIQUID UDC PO SCH ×2 (09:00→18:07)
[2022-08-16] MEDS: MEMANTINE HCL 10 MG TABLET PO SCH ×2 (09:15→20:25)
[2022-08-16] MEDS: LINAGLIPTIN 5 MG TABLET PO SCH (09:15)
[2022-08-16] MEDS: LITHIUM CARBONATE 300 MG CAPSULE PO SCH ×2 (09:17→18:08)
[2022-08-16] MEDS: APIXABAN 5 MG TABLET PO SCH ×2 (09:18→20:26)
[2022-08-16] MEDS: METFORMIN HCL 500 MG TABLET PO SCH ×2 (09:19→18:08)
[2022-08-16] MEDS: GLUCERNA SHAKE 237 ML CAN PO SCH ×2 (09:20→18:09)
[2022-08-16] MEDS: AMLODIPINE 5 MG TABLET PO SCH (09:22)
[2022-08-16] MEDS: INSULIN REGULAR, HUMAN 300 UNIT/3 ML VIAL SQ PRN (11:51)
[2022-08-16] MEDS: OLANZAPINE ZYDIS 5 MG TAB.RAPDIS PO SCH ×3 (13:05→20:25)
--- NOTE | 2022-08-16 13:07 | NUR ---
Family contact: BHAVIN spoke to patient's daughter in person and faxed the patient's clinical information to Juliet from a SNF (fax: [phone]) at the daughter's request.
--- NOTE | 2022-08-16 13:49 | NUR ---
Gps/Fish Hatchery Manager- Daughter came in to see patient, assisted with his lunch, patient was fed with his lunch, had been cooperative with the staff, no aggressive behavior noted had been redirectable, compliant with routine meds.. as prescribed. r
[2022-08-16 16:09] VITALS: BP 104/55
--- NOTE | 2022-08-16 16:49 | NUR ---
Gps/Debridging Machine Operator- Resistive to his pm care . Incontinent urine , good skin care provided. Patient was grabbing staff hard , kicking , needing 2 staff to provide his pm care . Unable to check his blood sugar , pt. making a tight asphalt heater operator on both hand . Will attempt to check blood sugar again when patient calmer and cooperative . Patient refused to work with P.T. this pm , per P.T. will try to work with pt. again tomorrow.Patient sleeping on and off during the day
--- NOTE | 2022-08-16 18:00 | NUR ---
Gps/Congressional Aide- Patient interacting fairly well with his daughter, pt. not not know her name ,but was very happy to see her and kept hugging her. Daughter fed patient during his dinner ,ate fairly well,, and drank nutritional supplements . pm care was rendered
[2022-08-16 20:06] VITALS: BP 110/64
[2022-08-16] MEDS: ATORVASTATIN 10 MG TABLET PO SCH (20:25)
[2022-08-16] MEDS: DONEPEZIL 5 MG TABLET PO SCH (20:25)
[2022-08-16] MEDS: MELATONIN 3 MG TABLET PO SCH (20:25)
[2022-08-16] MEDS: TRAZODONE 50 MG TABLET PO SCH (20:25)
[2022-08-16] MEDS: INSULIN REGULAR, HUMAN 300 UNITS/3 ML VIAL SQ PRN (20:44)
--- NOTE | 2022-08-17 01:52 | NUR ---
AOx1 pt is mainly confused, disoriented, and may become labile at times. Although not as much as previous weeks/shifts, this shift, pt still experienced episodes of auditory and visual hallucinations. Pt occasionally yelled out commanding statements in the middle of experiencing AH and VH's. During these episodes, pt was still able to be re-directed into reality, yet pt would still respond with flight of ideas type statements (his response had no correlation to what was being asked by this nurse). Compliant with medications, he still can have moments of labile mood swings, and can also still be aggressive or combative toward staff providing care, such as cleaning his perineal area and changing his diaper as needed. Safety measures implemented.
[2022-08-17 07:42] VITALS: BP 129/48
--- NOTE | 2022-08-17 07:54 | NUR ---
Per shift commander nurse, morning ACCU- Check was done on Pt. Pt had a Blood sugar reading of 104, no coverage needed per sliding scale but shift commander forgot to document result in the eMAR.
[2022-08-17] MEDS: GLUCERNA SHAKE 237 ML CAN PO SCH ×2 (08:35→17:38)
[2022-08-17] MEDS: LINAGLIPTIN 5 MG TABLET PO SCH (08:35)
[2022-08-17] MEDS: METFORMIN HCL 500 MG TABLET PO SCH ×2 (08:35→17:38)
[2022-08-17] MEDS: AMLODIPINE 5 MG TABLET PO SCH (08:36)
[2022-08-17] MEDS: LITHIUM CARBONATE 300 MG CAPSULE PO SCH ×2 (08:36→17:38)
[2022-08-17] MEDS: MEMANTINE HCL 10 MG TABLET PO SCH ×2 (08:36→20:40)
[2022-08-17] MEDS: APIXABAN 5 MG TABLET PO SCH ×2 (08:37→20:48)
[2022-08-17] MEDS: DOCUSATE SODIUM 100 MG/10 ML LIQUID UDC PO SCH ×2 (08:37→17:38)
[2022-08-17] MEDS: BLOOD SUGAR DIAGNOSTIC 1 EACH STRIP VI SCH ×3 (11:56→20:48)
[2022-08-17] MEDS: INSULIN REGULAR, HUMAN 300 UNIT/3 ML VIAL SQ PRN ×2 (12:55→17:52)
[2022-08-17] MEDS: OLANZAPINE ZYDIS 5 MG TAB.RAPDIS PO SCH ×2 (13:41→20:40)
[2022-08-17 16:17] VITALS: BP 111/60
--- NOTE | 2022-08-17 18:40 | NUR ---
Pt is in bed restless. Pt took all his morning medications with prompting and is compliant with all his medications. Pt is confuse and can not have a meaningful conversation. When staff was providing care and when transferring to chair, pt was combative throwing punches and kicking staff. Pt was in dinning room calm most of the day until staff provides care pt gets combative and tried to bite staff providing care. Once care was provided Pt calmed down.reassurance Provided continue to monitor for safety. Continue with treatment plan.
[2022-08-17 20:07] VITALS: BP 115/69
[2022-08-17] MEDS: MELATONIN 3 MG TABLET PO SCH (20:40)
[2022-08-17] MEDS: TRAZODONE 50 MG TABLET PO SCH (20:40)
[2022-08-17] MEDS: DONEPEZIL 5 MG TABLET PO SCH (20:40)
[2022-08-17] MEDS: ATORVASTATIN 10 MG TABLET PO SCH (20:40)
[2022-08-18] MEDS: BLOOD SUGAR DIAGNOSTIC 1 EACH STRIP VI SCH ×4 (06:17→21:05)
--- NOTE | 2022-08-18 06:32 | NUR ---
GPS: Remain calm and cooperative with meds and care. assisted with adl's. resting in bed comfortably. slept 7.45 hrs through the night.
[2022-08-18 07:58] VITALS: BP 113/43
[2022-08-18] MEDS: METFORMIN HCL 500 MG TABLET PO SCH ×2 (08:32→17:03)
[2022-08-18] MEDS: DOCUSATE SODIUM 100 MG/10 ML LIQUID UDC PO SCH ×2 (08:32→17:01)
[2022-08-18] MEDS: MEMANTINE HCL 10 MG TABLET PO SCH ×2 (08:32→21:05)
[2022-08-18] MEDS: LINAGLIPTIN 5 MG TABLET PO SCH (08:32)
[2022-08-18] MEDS: LITHIUM CARBONATE 300 MG CAPSULE PO SCH ×2 (08:32→17:01)
[2022-08-18] MEDS: GLUCERNA SHAKE 237 ML CAN PO SCH ×4 (08:33→17:01)
[2022-08-18] MEDS: AMLODIPINE 5 MG TABLET PO SCH (08:33)
[2022-08-18] MEDS: APIXABAN 5 MG TABLET PO SCH ×2 (08:34→21:04)
[2022-08-18] MEDS: INSULIN REGULAR, HUMAN 300 UNIT/3 ML VIAL SQ PRN ×2 (12:22→17:01)
[2022-08-18] MEDS: OLANZAPINE ZYDIS 5 MG TAB.RAPDIS PO SCH ×2 (13:34→21:03)
[2022-08-18 16:31] VITALS: BP 118/57
[2022-08-18 20:00] VITALS: BP 120/64
[2022-08-18] MEDS: MELATONIN 3 MG TABLET PO SCH (21:02)
[2022-08-18] MEDS: LORAZEPAM 0.5 MG TABLET PO PRN (21:02)
[2022-08-18] MEDS: ATORVASTATIN 10 MG TABLET PO SCH (21:03)
[2022-08-18] MEDS: TRAZODONE 50 MG TABLET PO SCH (21:03)
[2022-08-18] MEDS: DONEPEZIL 5 MG TABLET PO SCH (21:03)
[2022-08-18] MEDS: INSULIN REGULAR, HUMAN 300 UNITS/3 ML VIAL SQ PRN (21:07)
--- NOTE | 2022-08-19 06:35 | NUR ---
Patient had a good night. He was calm, but still anxious. He is compliant with meds, he has good appetite. He corporate well with staff during security shift supervisor. No sign of bleeding observed; blood sugar within range. Will continue to monitor patient for safety.
[2022-08-19] MEDS: BLOOD SUGAR DIAGNOSTIC 1 EACH STRIP VI SCH ×4 (07:43→21:00)
[2022-08-19] MEDS: INSULIN REGULAR, HUMAN 300 UNIT/3 ML VIAL SQ PRN (07:44)
[2022-08-19] MEDS: METFORMIN HCL 500 MG TABLET PO SCH ×2 (08:00→17:00)
[2022-08-19 08:09] VITALS: BP 134/49
[2022-08-19] MEDS: MEMANTINE HCL 10 MG TABLET PO SCH ×2 (09:00→20:05)
[2022-08-19] MEDS: GLUCERNA SHAKE 237 ML CAN PO SCH ×3 (09:00→16:31)
[2022-08-19] MEDS: APIXABAN 5 MG TABLET PO SCH ×2 (09:00→20:07)
[2022-08-19] MEDS: LITHIUM CARBONATE 300 MG CAPSULE PO SCH ×2 (09:00→16:30)
[2022-08-19] MEDS: DOCUSATE SODIUM 100 MG/10 ML LIQUID UDC PO SCH ×2 (09:00→16:30)
[2022-08-19] MEDS: LINAGLIPTIN 5 MG TABLET PO SCH (09:00)
[2022-08-19] MEDS: AMLODIPINE 5 MG TABLET PO SCH (09:00)
--- NOTE | 2022-08-19 10:56 | NUR ---
Patient is not given morning medications for being too sedated.
[2022-08-19] MEDS: OLANZAPINE ZYDIS 5 MG TAB.RAPDIS PO SCH ×2 (13:00→20:05)
[2022-08-19 16:52] VITALS: BP 108/55
--- NOTE | 2022-08-19 17:14 | NUR ---
Patient is A/O X 1 to self. Patient is confuse, disorganized, disoriented, less agitated and combative with nursing care, compliant with medications, requires more than minimal assistance with ADL, ambulates with assistance of 2 physical therapist, incontinent, feeder. Emotional support provided. Fall and safety precautions implemented.
[2022-08-19 20:02] VITALS: BP 131/54
[2022-08-19] MEDS: DONEPEZIL 5 MG TABLET PO SCH (20:05)
[2022-08-19] MEDS: MELATONIN 3 MG TABLET PO SCH (20:05)
[2022-08-19] MEDS: ATORVASTATIN 10 MG TABLET PO SCH (20:06)
[2022-08-19] MEDS: TRAZODONE 50 MG TABLET PO SCH (20:06)
--- NOTE | 2022-08-20 06:30 | NUR ---
Patient was very agitated at the beginning of shift. Antianxiety have been administered. Patient became less anxious; he slept through the night. He is now cooperative with staff and still sleeping . Will continue to monitor patient for safety.
[2022-08-20] MEDS: BLOOD SUGAR DIAGNOSTIC 1 EACH STRIP VI SCH ×4 (07:15→21:00)
[2022-08-20 07:48] VITALS: BP 109/59
[2022-08-20] MEDS: AMLODIPINE 5 MG TABLET PO SCH (09:00)
[2022-08-20] MEDS: LINAGLIPTIN 5 MG TABLET PO SCH (09:52)
[2022-08-20] MEDS: LITHIUM CARBONATE 300 MG CAPSULE PO SCH ×2 (09:52→16:21)
[2022-08-20] MEDS: METFORMIN HCL 500 MG TABLET PO SCH ×2 (09:52→17:08)
[2022-08-20] MEDS: GLUCERNA SHAKE 237 ML CAN PO SCH ×3 (09:52→17:22)
[2022-08-20] MEDS: APIXABAN 5 MG TABLET PO SCH ×2 (09:53→21:49)
[2022-08-20] MEDS: MEMANTINE HCL 10 MG TABLET PO SCH ×2 (09:54→21:46)
[2022-08-20] MEDS: DOCUSATE SODIUM 100 MG/10 ML LIQUID UDC PO SCH ×2 (09:55→16:21)
--- NOTE | 2022-08-20 09:56 | NUR ---
Patient blood glucose is 141, patient refuses regular insulin.
--- NOTE | 2022-08-20 11:29 | NUR ---
Family contact: SW spoke to patient's daughter, Zara Gross ([phone]) and faxed the patient's clinical information to [facility] the [facility] (fax: [phone]) at the daughter's request.
[2022-08-20] MEDS: OLANZAPINE ZYDIS 5 MG TAB.RAPDIS PO SCH ×2 (12:34→21:47)
--- NOTE | 2022-08-20 14:01 | NUR ---
Patient is less combative and agitated, withdrawn, confused, forgetful, disoriented, disorganized, uncooperative with nursing care at times, poor safety awareness, requires total assistance with ADL. Patient is A/O X 1 to person. Reality orientation provided. Fall and safety precautions implemented.
--- NOTE | 2022-08-20 16:05 | NUR ---
Family contact: SW spoke to patient's son, Storm Munguia ([phone]) and faxed the patient's clinical information to [facility] in [place] at the son's request.
[2022-08-20 17:36] VITALS: BP 143/72
[2022-08-20] MEDS: INSULIN REGULAR, HUMAN 300 UNIT/3 ML VIAL SQ PRN (17:40)
--- NOTE | 2022-08-20 17:43 | NUR ---
Patient blood glucose is 193, 3 units of regular insulin given per sliding scale.
[2022-08-20 20:00] VITALS: BP 121/68
[2022-08-20] MEDS: LORAZEPAM 0.5 MG TABLET PO PRN (21:46)
[2022-08-20] MEDS: MELATONIN 3 MG TABLET PO SCH (21:46)
[2022-08-20] MEDS: TRAZODONE 50 MG TABLET PO SCH (21:47)
[2022-08-20] MEDS: DONEPEZIL 5 MG TABLET PO SCH (21:47)
[2022-08-20] MEDS: ATORVASTATIN 10 MG TABLET PO SCH (21:48)
[2022-08-20] MEDS: INSULIN REGULAR, HUMAN 300 UNITS/3 ML VIAL SQ PRN (22:08)
--- NOTE | 2022-08-21 06:30 | NUR ---
Patient was less agitated last night. He is compliant with meds, but still show sign of anxiety confusion and aggressivity. He is now sleeping in his room. Will continue to monitor patient for safety.
--- NOTE | 2022-08-21 07:51 | NUR ---
GPS: Patient in his room, lying in bed asleep, with no S/S of distress noted. Fall and safety precaution implemented.
[2022-08-21 08:00] VITALS: BP 115/63
[2022-08-21] MEDS: METFORMIN HCL 500 MG TABLET PO SCH ×2 (08:00→18:13)
[2022-08-21] MEDS: BLOOD SUGAR DIAGNOSTIC 1 EACH STRIP VI SCH ×4 (08:02→20:58)
[2022-08-21] MEDS: MEMANTINE HCL 10 MG TABLET PO SCH ×2 (09:00→20:19)
[2022-08-21] MEDS: GLUCERNA SHAKE 237 ML CAN PO SCH ×3 (09:00→16:30)
[2022-08-21] MEDS: LINAGLIPTIN 5 MG TABLET PO SCH (09:00)
[2022-08-21] MEDS: LITHIUM CARBONATE 300 MG CAPSULE PO SCH ×2 (09:00→16:24)
[2022-08-21] MEDS: DOCUSATE SODIUM 100 MG/10 ML LIQUID UDC PO SCH ×2 (09:00→16:24)
[2022-08-21] MEDS: APIXABAN 5 MG TABLET PO SCH ×2 (09:00→20:24)
[2022-08-21] MEDS: AMLODIPINE 5 MG TABLET PO SCH (09:00)
[2022-08-21 10:13] LABS: MEAN CORPUSCULAR HEMOGLOBIN 30.7 uug (23.8-33.4); MEAN CORPUSCULAR VOLUME 91.4 fL (73.0-96.2); PLATELET COUNT (AUTO) 296 K/uL (152-348)
[2022-08-21 10:23] LABS: CREATININE 0.9 mg/dL (0.6-1.3); POTASSIUM 3.8 mmol/L (3.5-5.1)
[2022-08-21] MEDS ORDERED: BISACODYL 10 MG SUPP.RECT RC PRN (12:45)
--- NOTE | 2022-08-21 13:17 | NUR ---
BHAVIN spoke with Cheryl at [facility] and faxed over updated clinical information for review. BHAVIN will continue to follow up.
[2022-08-21] MEDS: OLANZAPINE ZYDIS 5 MG TAB.RAPDIS PO SCH ×2 (13:40→20:19)
[2022-08-21 16:00] VITALS: BP 118/74
[2022-08-21] MEDS: INSULIN REGULAR, HUMAN 300 UNIT/3 ML VIAL SQ PRN (16:29)
[2022-08-21] MEDS: DONEPEZIL 5 MG TABLET PO SCH (20:19)
[2022-08-21] MEDS: MELATONIN 3 MG TABLET PO SCH (20:19)
[2022-08-21] MEDS: LORAZEPAM 0.5 MG TABLET PO PRN (20:19)
[2022-08-21] MEDS: TRAZODONE 50 MG TABLET PO SCH (20:20)
[2022-08-21 20:45] VITALS: BP 134/79
[2022-08-21] MEDS: ATORVASTATIN 10 MG TABLET PO SCH (20:50)
--- NOTE | 2022-08-22 06:30 | NUR ---
Patient had a good night last night . However, at the start if shift he was anxious, agitated; but after medication administration he went to bed early and remain in bed for the rest of the night. No behavior issues was observed after. Will continue to monitor patient for safety.
[2022-08-22] MEDS: BLOOD SUGAR DIAGNOSTIC 1 EACH STRIP VI SCH ×4 (07:07→20:41)
[2022-08-22 07:30] VITALS: BP 118/79
[2022-08-22] MEDS: METFORMIN HCL 500 MG TABLET PO SCH ×2 (08:00→17:21)
[2022-08-22 08:08] LABS: HEMATOCRIT 35.3 % (36.7-47.1); MEAN CORPUSCULAR HEMOGLOBIN 31.1 uug (23.8-33.4); MEAN CORPUSCULAR VOLUME 91.2 fL (73.0-96.2); PLATELET COUNT (AUTO) 284 K/uL (152-348)
[2022-08-22 08:37] LABS: THYROID STIMULATING HORMONE 3.411 mIU/mL (0.358-3.740)
[2022-08-22] MEDS: LITHIUM CARBONATE 300 MG CAPSULE PO SCH ×2 (09:29→16:42)
[2022-08-22] MEDS: LINAGLIPTIN 5 MG TABLET PO SCH (09:29)
[2022-08-22] MEDS: DOCUSATE SODIUM 100 MG/10 ML LIQUID UDC PO SCH ×2 (09:31→16:51)
[2022-08-22] MEDS: APIXABAN 5 MG TABLET PO SCH ×2 (09:31→20:42)
[2022-08-22] MEDS: MEMANTINE HCL 10 MG TABLET PO SCH ×2 (09:34→20:41)
[2022-08-22] MEDS: AMLODIPINE 5 MG TABLET PO SCH (09:36)
[2022-08-22] MEDS: GLUCERNA SHAKE 237 ML CAN PO SCH ×3 (09:37→16:50)
[2022-08-22] MEDS: OLANZAPINE ZYDIS 5 MG TAB.RAPDIS PO SCH ×2 (14:05→20:41)
--- NOTE | 2022-08-22 15:19 | NUR ---
GPS: Patient is lying in with no S/S of discomfort. Fall and safety precautions implemented.
[2022-08-22 15:21] VITALS: BP 114/48
--- NOTE | 2022-08-22 15:21 | NUR ---
GPS: Patient is up in mine-chair, cooperative with care, no signs and symptoms of distress, medication compliance today. Patient is currently free from pain or any discomfort. Emotional support provided. Fall and safety precautions implemented.
[2022-08-22 20:00] VITALS: BP 116/65
[2022-08-22] MEDS: DONEPEZIL 5 MG TABLET PO SCH (20:41)
[2022-08-22] MEDS: TRAZODONE 50 MG TABLET PO SCH (20:41)
[2022-08-22] MEDS: ATORVASTATIN 10 MG TABLET PO SCH (20:41)
[2022-08-22] MEDS: MELATONIN 3 MG TABLET PO SCH (20:42)
--- NOTE | 2022-08-23 06:01 | NUR ---
GPS NOTES: [facility], A&0x1, confused, agitated and episode of yelling throughout the shift. He is more compliant with care, no striking out incident. He is somewhat responsive to conversation although disorganized thought is observed. BS is 266 but refused insulin. No signs and symptoms of hyperglycemia noted. He is responding well with medications as observed by having a good sleep. Good pericare provided. No distress noted. Frequent monitoring observed, all safety precautions in placed.
[2022-08-23] MEDS: BLOOD SUGAR DIAGNOSTIC 1 EACH STRIP VI SCH ×4 (06:36→20:06)
[2022-08-23 07:06] LABS: *IMMUNOGLOBULIN G, SERUM 1779 mg/dL (603-1613); IMMUNOGLOBULIN M, SERUM 81 mg/dL (15-143)
[2022-08-23 07:30] VITALS: BP 124/54
[2022-08-23 07:45] LABS: HEMATOCRIT 36.1 % (36.7-47.1); MEAN CORPUSCULAR HEMOGLOBIN 31.1 uug (23.8-33.4); MEAN CORPUSCULAR VOLUME 91.4 fL (73.0-96.2); PLATELET COUNT (AUTO) 286 K/uL (152-348)
[2022-08-23] MEDS: METFORMIN HCL 500 MG TABLET PO SCH ×2 (08:00→17:08)
--- NOTE | 2022-08-23 08:30 | NUR ---
Family contact Note: BHAVIN spoke to pt's son, Storm Munguia ([phone]) with psychiatrist, Dr. Hurtado via telephone regarding pt's discharge order for Wednesday, August 24, 2022. Storm asked Dr. Hurtado for pt to remain at [facility] for additional days. Dr. Hurtado discussed pt's improvements and stated that pt is stable for discharge tomorrow and does not meet criteria for further hospitalization at [facility]. Dr. Hurtado discussed his recommendation for the pt's continuation of care location such as [facility] located at [address] [place] [address] ([phone]) where he would continue pt's care. In addition, Storm is aware and agreeable and asked this SW to also refer to [facility] the [facility] [address] [place] [address] ; [facility] [address] [address] ([phone]); and [facility] [address] [address] . Storm and Zara are aware and agreeable that pt will discharge tomorrow to one of these locations for continuation of care. BHAVIN will continue to update family and .
[2022-08-23] MEDS: AMLODIPINE 5 MG TABLET PO SCH (09:00)
[2022-08-23] MEDS: APIXABAN 5 MG TABLET PO SCH ×2 (09:00→20:22)
[2022-08-23] MEDS: DOCUSATE SODIUM 100 MG/10 ML LIQUID UDC PO SCH ×2 (09:00→16:32)
[2022-08-23] MEDS: MEMANTINE HCL 10 MG TABLET PO SCH ×2 (09:00→20:21)
[2022-08-23] MEDS: LITHIUM CARBONATE 300 MG CAPSULE PO SCH ×2 (09:00→16:32)
[2022-08-23] MEDS: GLUCERNA SHAKE 237 ML CAN PO SCH ×3 (09:00→17:54)
[2022-08-23] MEDS: LINAGLIPTIN 5 MG TABLET PO SCH (09:00)
--- NOTE | 2022-08-23 11:00 | NUR ---
Morning medications not given for being too sleepy and sedated.
--- NOTE | 2022-08-23 12:22 | NUR ---
SW REFERRAL: SW faxed faxed patient's referral packet including: History and Physical, Consultation, Progress Notes, Medication List and Labs to the following facilities for review and possible [place] [facility] [place] placement: [facility] the [address] [place] , [place] [address] ([phone]) (fax: [phone]) and this SW left a voicemail for Kendal in admissions for a call back regarding referral update for pt's discharge tomorrow.
[2022-08-23] MEDS: OLANZAPINE ZYDIS 5 MG TAB.RAPDIS PO SCH ×2 (12:56→20:21)
[2022-08-23 13:07] LABS: A/G RATIO 0.7 (0.7-1.7); ALBUMIN 2.7 g/dL (2.9-4.4); ALPHA-1-GLOBULIN 0.2 g/dL (0.0-0.4); ALPHA-2-GLOBULIN 0.7 g/dL (0.4-1.0); GAMMA GLOBULIN 1.7 g/dL (0.4-1.8); GLOBULIN, TOTAL 3.7 g/dL (2.2-3.9); M-SPIKE Not Observed g/dL (Not Observed)
--- NOTE | 2022-08-23 13:46 | NUR ---
Received patient sleeping in his room. Patient is A/O X 1 to person. Patient is confused, forgetful, disoriented, disorganized, anxious and agitated at times, compliant with medications. Patient is cooperative with nursing care as long as he is not woken up abruptly. Patient missed his morning medications, had been too sedated and sleepy. Patient requires total care. Patient ambulates with assistance of 2 physical therapists. Reassurance given. Fall and safety precautions implemented.
[2022-08-23 15:45] VITALS: BP 127/65
[2022-08-23] MEDS: ACETAMINOPHEN 325 MG TABLET PO PRN (16:32)
[2022-08-23] MEDS: INSULIN REGULAR, HUMAN 300 UNIT/3 ML VIAL SQ PRN (17:02)
--- NOTE | 2022-08-23 17:05 | NUR ---
Patient blood glucose is 208, 6 units of regular insulin given per sliding scale.
[2022-08-23 20:00] VITALS: BP 97/55
[2022-08-23] MEDS: DONEPEZIL 5 MG TABLET PO SCH (20:21)
[2022-08-23] MEDS: ATORVASTATIN 10 MG TABLET PO SCH (20:21)
[2022-08-23] MEDS: TRAZODONE 50 MG TABLET PO SCH (20:21)
[2022-08-23] MEDS: MELATONIN 3 MG TABLET PO SCH (20:21)
[2022-08-23] MEDS: LORAZEPAM 0.5 MG TABLET PO PRN (20:21)
[2022-08-24] MEDS: BLOOD SUGAR DIAGNOSTIC 1 EACH STRIP VI SCH ×2 (06:35→11:18)
[2022-08-24 06:54] LABS: HEMATOCRIT 33.7 % (36.7-47.1); MEAN CORPUSCULAR HEMOGLOBIN 31.2 uug (23.8-33.4); MEAN CORPUSCULAR VOLUME 91.8 fL (73.0-96.2); PLATELET COUNT (AUTO) 261 K/uL (152-348)
[2022-08-24 07:55] VITALS: BP 139/62
--- NOTE | 2022-08-24 08:22 | NUR ---
SW Discharge Update: BHAVIN spoke to pt's daughter, Zara who asked this writer technical publications to send referrals to Juliet from [facility] F:[phone] P: [phone] EXT 2006; Angelica from [facility] [phone] F:[phone]; [facility] and speak to Nick [phone] F:[phone]; [facility] and speak to Rashaun [phone] F:[phone]. BHAVIN stated she will follow-up with Storm and Zara with updates. Zara and Storm refuse for the pt to discharge to [facility]. However, they understand that the pt has [facility] as a backup accepting facility if their desired locations do not accept the pt by mid day today.
--- NOTE | 2022-08-24 08:31 | NUR ---
SW DISCHARGE REFERRALS: SW faxed patient's referral packet including: History and Physical, Consultation, Progress Notes, Medication List and Labs to the following facilities for review and possible correction placement: Juliet from [facility] F:[phone] P: [phone] EXT 2006; Angelica from [facility] [phone] F:[phone]; [facility] and speak to Nick [phone] F:[phone]; [facility] and speak to Rashaun [phone] F:[phone].
[2022-08-24 09:00] VITALS: BP 139/62
[2022-08-24] MEDS: AMLODIPINE 5 MG TABLET PO SCH (09:00)
[2022-08-24] MEDS: APIXABAN 5 MG TABLET PO SCH (09:00)
[2022-08-24] MEDS: DOCUSATE SODIUM 100 MG/10 ML LIQUID UDC PO SCH (09:00)
[2022-08-24] MEDS: GLUCERNA SHAKE 237 ML CAN PO SCH ×2 (09:00→13:00)
[2022-08-24] MEDS: LITHIUM CARBONATE 300 MG CAPSULE PO SCH (11:17)
[2022-08-24] MEDS: METFORMIN HCL 500 MG TABLET PO SCH (11:17)
[2022-08-24] MEDS: LINAGLIPTIN 5 MG TABLET PO SCH (11:18)
[2022-08-24] MEDS: MEMANTINE HCL 10 MG TABLET PO SCH (11:18)
[2022-08-24] MEDS: INSULIN REGULAR, HUMAN 300 UNIT/3 ML VIAL SQ PRN (11:21)
--- NOTE | 2022-08-24 11:45 | NUR ---
SW DISCHARGE UPDATE: SW spoke to pt's daughter, Zara ([phone]) regarding updates. SW stated there are no updates yet and this SW is still waiting. SW stated this selling underwriter contacted each facility and messaged and is awaiting a response. Zara was very grateful for this SW's help in sending referrals to ech of their requests. Pt's son, Storm [phone] is aware of the pending process as well. SW stated this SW is the covering SW for the hospital and to please leave a voicemail if this SW is not available. Zara and Storm were very understanding and appreciative.
[2022-08-24] MEDS: OLANZAPINE ZYDIS 5 MG TAB.RAPDIS PO SCH (13:00)
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
[2022-08-24] MEDS: LORAZEPAM 0.5 MG TABLET PO PRN (13:53)
--- NOTE | 2022-08-24 14:18 | NUR ---
BHAVIN DISCHARGE NOTE: Pt will be discharged to [address] [address] ([phone]) via Ambulance transportation at 2PM. BHAVIN spoke with admin coordinator, Kizzy ([phone]) at the facility who states they are ready to accept the patient today. Pt is aware and agreeable with discharge plan. Pts son, Storm ([phone]) and daughter, Zara ([phone]) are aware and agreeable with the final discharge plan. Pt is alert and oriented x2, is unable to plan for self-care at this time. However, pt is willing to accept care at SNF. Pt denies any suicidal or homicidal ideation. Pt will follow-up at the facility with Psychiatrist, Dr. Hurtado ([phone] and Promos Executive Producer, Dr. Hollingsworth. Pt presents with calm mood and congruent affect. PHARMACY: [facility] ([phone]) [address] [facility] [place] [address].
--- NOTE | 2022-08-24 14:46 | NUR ---
Patient left facility on a stretcher in the ambulance. Patient took all of his morning medications. was able to eat his breakfast and lunch. Patient was AAOX2 with confusion; was very cooperative, followed direction. all the paperwork have been sent to the facility. Patient denied pain, no discomfort; vitals within normal range. Patient left facility well and stable.
--- NOTE | 2022-08-24 15:42 | NUR ---
BHAVIN FAMILY CONTACT: Pt's daughter, Zara [phone] walked into this SW's office and stated they refuse the pt to discharge to [facility]. BHAVIN stated that pt discharged to [facility] facility per earlier conversation of her and Storm's agreement due to the previous facilities denying the pt for continuation of care at their facilities. Zara began to yell at this and alleged that she never agreed to transferring to [facility] as a backup by 2PM. Zara appeared accusatory towards this SW and threatened this technical proposal writer by stating, "You will hear from my arc air operator!" SW informed Director of Behavioral Health, Dr. Eva Arias who was also aware of SW's continuous help of referrals for each of the families facility requests.
== END 2022-08-24 14:15 | DRG 885 ==
LOC: ER 17:47 → GPS 21:12
PROVIDERS: ADMIT Psychiatry & Neurology Psychiatry; ATTEND Student in an Organized Health Care Education/Training Program
DX: F39 Unspecified mood [affective] disorder (principal); G93.41 Metabolic encephalopathy; I82.431 Acute embolism and thrombosis of right popliteal vein; I82.451 Acute embolism and thrombosis of right peroneal vein; F02.811 Dementia in other diseases classified elsewhere, unspecified severity, with agitation; D68.59 Other primary thrombophilia; E11.9 Type 2 diabetes mellitus without complications; S06.0X0D Concussion without loss of consciousness, subsequent encounter; W19.XXXD Unspecified fall, subsequent encounter; Z86.718 Personal history of other venous thrombosis and embolism; G31.09 Other frontotemporal neurocognitive disorder; G30.9 Alzheimer's disease, unspecified; E78.5 Hyperlipidemia, unspecified; Z95.1 Presence of aortocoronary bypass graft; Z79.84 Long term (current) use of oral hypoglycemic drugs; K59.00 Constipation, unspecified; D72.829 Elevated white blood cell count, unspecified; D64.9 Anemia, unspecified; S01.01XD Laceration without foreign body of scalp, subsequent encounter; Z79.899 Other long term (current) drug therapy
CPT/HCPCS: 36415; 70030-TC; 70450; 70490; 71250; 80164; 82378; 82746; 82784; 83550; 83735; 84100; 84153; 84155; 84165; 84443; 84481; 85025; 85305; 85610; 85613; 86301; 86334; A4663; J1650; J1815; J2060; J2358